=== PATIENT | female | born 1935 | race Caucasian/White ===

== ENCOUNTER 2016-08-04 12:44 | Outpatient (CLI) | payer MEDICARE, OTHER | END 2016-08-04 12:45 | disposition home or self-care (01) | DX: I48.0 Paroxysmal atrial fibrillation (principal) ==

== ENCOUNTER 2016-08-23 | Outpatient (CLI) | payer MEDICARE, OTHER | END 2016-08-23 15:53 | disposition home or self-care (01) | DX: Z53.9 Procedure and treatment not carried out, unspecified reason (principal) ==

== ENCOUNTER 2016-08-23 16:50 | Outpatient (CLI) | payer MEDICARE, OTHER | END 2016-08-23 16:51 | disposition home or self-care (01) | DX: I48.0 Paroxysmal atrial fibrillation (principal) ==

== ENCOUNTER 2016-08-26 11:35 | Outpatient (CLI) | payer MEDICARE, OTHER | END 2016-08-26 11:36 | disposition home or self-care (01) | DX: I10 Essential (primary) hypertension (principal); E78.5 Hyperlipidemia, unspecified; E11.9 Type 2 diabetes mellitus without complications ==

== ENCOUNTER 2016-09-15 13:03 | Outpatient (CLI) | payer MEDICARE, OTHER ==
[2016-09-15 13:39] LABS: CALCIUM 9.7 mg/dL (8.5-10.3); CREATININE 1.5 mg/dL (0.4-1.0); POTASSIUM 4.1 mmol/L (3.5-5.0)
[2016-09-15 13:54] LABS: HEMOGLOBIN A1C 0.65 g/dL
== END 2016-09-15 13:04 | disposition home or self-care (01) ==
LOC: LAB 13:03
PROVIDERS: ATTEND Family Medicine
DX: I50.9 Heart failure, unspecified (principal); E11.9 Type 2 diabetes mellitus without complications; N28.9 Disorder of kidney and ureter, unspecified; I10 Essential (primary) hypertension
CPT/HCPCS: 36415; 80048; 83036

== ENCOUNTER 2016-09-19 12:50 | Outpatient (CLI) | payer MEDICARE, OTHER | END 2016-09-19 12:51 | disposition home or self-care (01) | DX: I48.0 Paroxysmal atrial fibrillation (principal) ==

== ENCOUNTER 2016-10-20 11:23 | Outpatient (CLI) | payer MEDICARE, OTHER | END 2016-10-20 11:24 | disposition home or self-care (01) | DX: I48.0 Paroxysmal atrial fibrillation (principal) ==

== ENCOUNTER 2016-10-22 16:36 | Outpatient (CLI) | payer MEDICARE, OTHER | END 2016-10-22 16:37 | disposition home or self-care (01) | DX: I48.0 Paroxysmal atrial fibrillation (principal) ==

== ENCOUNTER 2016-11-10 12:06 | Outpatient (CLI) | payer MEDICARE, OTHER | END 2016-11-10 12:07 | disposition home or self-care (01) | DX: I48.0 Paroxysmal atrial fibrillation (principal) ==

== ENCOUNTER 2016-12-10 14:37 | Outpatient (CLI) | payer MEDICARE, OTHER | END 2016-12-10 14:38 | disposition home or self-care (01) | DX: I48.0 Paroxysmal atrial fibrillation (principal) ==

== ENCOUNTER 2017-01-05 15:00 | Outpatient (CLI) | payer MEDICARE, OTHER | END 2017-01-05 15:01 | disposition home or self-care (01) | LOC: LAB 15:00 | PROVIDERS: ATTEND Family Medicine | DX: I48.0 Paroxysmal atrial fibrillation (principal) | CPT/HCPCS: 85610 ==

== ENCOUNTER 2017-01-09 15:24 | Outpatient (CLI) | payer MEDICARE, OTHER | END 2017-01-09 15:25 | disposition home or self-care (01) | LOC: LAB 15:24 | PROVIDERS: ATTEND Family Medicine | DX: I48.0 Paroxysmal atrial fibrillation (principal) ==

== ENCOUNTER 2017-01-12 12:21 | Outpatient (CLI) | payer MEDICARE, OTHER ==
[2017-01-12 13:08] LABS: HEMOGLOBIN A1C 0.64 g/dL
[2017-01-12 13:10] LABS: CALCIUM 8.9 mg/dL (8.5-10.3); CREATININE 1.4 mg/dL (0.4-1.0); POTASSIUM 4.1 mmol/L (3.5-5.0)
== END 2017-01-12 12:22 | disposition home or self-care (01) ==
LOC: LAB 12:21
PROVIDERS: ATTEND Family Medicine
DX: E11.9 Type 2 diabetes mellitus without complications (principal); I10 Essential (primary) hypertension
CPT/HCPCS: 36415; 80048; 83036

== ENCOUNTER 2017-02-16 12:07 | Outpatient (CLI) | payer MEDICARE, OTHER | END 2017-02-16 12:08 | disposition home or self-care (01) | LOC: LAB 12:07 | PROVIDERS: ATTEND Family Medicine | DX: I48.0 Paroxysmal atrial fibrillation (principal) | CPT/HCPCS: 85610 ==

== ENCOUNTER 2017-03-18 15:39 | Outpatient (CLI) | payer MEDICARE, OTHER | END 2017-03-18 15:40 | disposition home or self-care (01) | LOC: LAB 15:39 | PROVIDERS: ATTEND Family Medicine | DX: I48.0 Paroxysmal atrial fibrillation (principal) | CPT/HCPCS: 85610 ==

== ENCOUNTER 2017-03-21 13:26 | Outpatient (CLI) | payer MEDICARE | END 2017-03-21 13:27 | disposition home or self-care (01) | LOC: LAB 13:26 | PROVIDERS: ATTEND Family Medicine | DX: I48.0 Paroxysmal atrial fibrillation (principal) | CPT/HCPCS: 85610 ==

== ENCOUNTER 2017-04-14 10:12 | Outpatient (CLI) | payer MEDICARE, OTHER ==
[2017-04-14 10:58] LABS: ALBUMIN/GLOBULIN RATIO 1.5 (1.0-2.2); BILIRUBIN,TOTAL 0.4 mg/dL (0.2-1.0); CALCIUM 9.6 mg/dL (8.5-10.3); CREATININE 1.6 mg/dL (0.4-1.0); POTASSIUM 4.5 mmol/L (3.5-5.0); TOTAL PROTEIN 7.4 g/dL (6.7-8.2)
[2017-04-14 11:17] LABS: HEMOGLOBIN A1C 0.79 g/dL
== END 2017-04-14 10:13 | disposition home or self-care (01) ==
LOC: LAB 10:12
PROVIDERS: ATTEND Family Medicine
DX: E11.9 Type 2 diabetes mellitus without complications (principal); N28.9 Disorder of kidney and ureter, unspecified; I10 Essential (primary) hypertension
CPT/HCPCS: 36415; 80053; 83036

== ENCOUNTER 2017-06-24 09:31 | Outpatient (CLI) | payer MEDICARE, OTHER ==
[2017-06-24 10:10] LABS: CALCIUM 9.2 mg/dL (8.5-10.3); CREATININE 1.5 mg/dL (0.4-1.0); INR 3.7 (0.8-1.2); POTASSIUM 3.9 mmol/L (3.5-5.0); PT - PROTHROMBIN TIME 39.8 secs (9.9-12.6)
[2017-06-24 10:40] LABS: HEMOGLOBIN A1C 0.69 g/dL
== END 2017-06-24 09:32 | disposition home or self-care (01) ==
LOC: LAB 09:31
PROVIDERS: ATTEND Family Medicine
DX: I48.91 Unspecified atrial fibrillation (principal); Z79.01 Long term (current) use of anticoagulants
CPT/HCPCS: 36415; 80048; 83036; 85610

== ENCOUNTER 2017-07-14 14:54 | Outpatient (CLI) | payer MEDICARE, OTHER | END 2017-07-14 14:55 | disposition home or self-care (01) | LOC: LAB 14:54 | PROVIDERS: ATTEND Family Medicine | DX: I48.0 Paroxysmal atrial fibrillation (principal) | CPT/HCPCS: 85610 ==

== ENCOUNTER 2017-09-18 13:28 | Outpatient (CLI) | payer MEDICARE, OTHER ==
--- NOTE | 2017-09-21 10:12 | DEXA Report ---
DEXA SCAN: 09/18/2017 CLINICAL INDICATION: Osteoporosis. TECHNIQUE: Dual energy x-ray absorptiometry (DXA) was performed on a [facility] system. Regions measured are the AP spine, femoral neck, and, if needed, forearm. COMPARISON: None. In accordance with the International Society for Clinical Densitometry (ISCD) guidelines, data from previous exams may be reanalyzed using current recommendations and techniques. This is done to allow a more accurate basis for comparison with the current study. FINDINGS: The data for the lumbar spine is as follows: REGION BMD (g/cm/cm) T-SCORE Z-SCORE L1 1.298 1.4 3.4 L2 1.138 -0.5 1.5 L3 1.087 -0.9 1.1 L4 0.983 -1.8 0.2 L1-L4 1.112 -0.6 1.5 L2-L4 1.058 -1.2 0.8 NOTE: All evaluable vertebrae are used for classification. The data for the hip is as follows: REGION BMD (g/cm/cm) T-SCORE Z-SCORE Neck 0.849 -1.4 0.9 TOTAL 0.852 -1.2 0.9 NOTE: The femoral neck or total proximal femur, whichever is lowest, is used for classification. IMPRESSION THE WHO CLASSIFICATION BASED ON THE INTERNATIONAL REFERENCE STANDARD IS OSTEOPENIA. THE FRACTURE RISK IS INCREASED. RECOMMENDATION: Patients with diagnosis of osteoporosis or osteopenia should have regular bone mineral density assessment. For those eligible for Medicare, routine testing is allowed once every 2 years. Testing frequency can be increased for patients who have rapidly progressing disease or for those who are receiving medical therapy to restore bone mass. COMMENT: World Health Organization (WHO) definitions for osteoporosis and osteopenia: NORMAL BMD: T-score at 1.0 or higher, fracture risk is low. OSTEOPENIA BMD: T-score between 1.0 and -2.5, fracture risk is increased. OSTEOPOROSIS BMD: T-score at 2.5 or lower, fracture risk high. National Osteoporosis Foundation recommends: 1. Obtain adequate dietary calcium (at least 1200 mg per day) and vitamin D (400 -800 international units per day). 2. Participate, as appropriate, in regular weightbearing and muscle- strengthening exercise. 3. Avoid tobacco use and reduce alcohol and caffeine intake. 4. For more detailed information see the website at www.NOF.org. TD: 09/18/2017 15:52 [email or web address]
== END 2017-09-18 13:29 | disposition home or self-care (01) ==
LOC: DI 13:28
PROVIDERS: ATTEND Physician Assistant Medical
DX: M85.89 Other specified disorders of bone density and structure, multiple sites (principal); I48.0 Paroxysmal atrial fibrillation; E11.9 Type 2 diabetes mellitus without complications; I11.0 Hypertensive heart disease with heart failure; I50.9 Heart failure, unspecified; F43.20 Adjustment disorder, unspecified; N28.9 Disorder of kidney and ureter, unspecified; E78.5 Hyperlipidemia, unspecified; Z79.01 Long term (current) use of anticoagulants
CPT/HCPCS: 36415; 77080; 80053; 80061; 83036; 83721; 85610

== ENCOUNTER 2017-09-18 14:02 | Outpatient (CLI) | payer MEDICARE, OTHER ==
[2017-09-18 14:41] LABS: ALBUMIN 4.5 g/dL (3.2-5.5); ALBUMIN/GLOBULIN RATIO 1.4 (1.0-2.2); ALKALINE PHOSPHATASE 55 IU/L (42-121); ALT ALANINE AMINOTRANSFERASE 15 IU/L (10-60); AST ASPARTATE AMINOTRANSFERASE 24 IU/L (10-42); BILIRUBIN,TOTAL 0.7 mg/dL (0.2-1.0); BUN - BLOOD UREA NITROGEN 18 mg/dL (6-20); CALCIUM 9.5 mg/dL (8.5-10.3); CARBON DIOXIDE - CO2 25 mmol/L (21-32); CHLORIDE 98 mmol/L (101-111); CHOL/HDL RATIO 5.5 (<4.4); CHOLESTEROL 180 mg/dL; CREATININE 1.5 mg/dL (0.4-1.0); GFR - MDRD 33 (>89); GLUCOSE 95 mg/dL (70-100); HDL CHOLESTEROL 33 mg/dL; SODIUM 137 mmol/L (135-145); TOTAL PROTEIN 7.7 g/dL (6.7-8.2)
[2017-09-18 14:43] LABS: HB2 TOTAL 14.8 g/dL; HEMOGLOBIN A1C 0.73 g/dL; HEMOGLOBIN A1C % 6.7 % (4.6-6.2)
[2017-09-18 15:10] LABS: LDL CHOLESTEROL,DIRECT 58 mg/dL; LDLD/HDL RATIO 1.8 (<4.4)
== END 2017-09-18 14:03 | disposition home or self-care (01) ==
LOC: LAB 14:02
PROVIDERS: ATTEND Family Medicine
DX: I48.0 Paroxysmal atrial fibrillation (principal); Z79.01 Long term (current) use of anticoagulants; E11.9 Type 2 diabetes mellitus without complications; I11.0 Hypertensive heart disease with heart failure; I50.9 Heart failure, unspecified; F43.20 Adjustment disorder, unspecified; N28.9 Disorder of kidney and ureter, unspecified; E78.5 Hyperlipidemia, unspecified
CPT/HCPCS: 36415; 80053; 80061; 83036; 83721; 85610

== ENCOUNTER 2017-11-05 15:04 | Outpatient (CLI) | payer MEDICARE, OTHER | END 2017-11-05 15:05 | disposition home or self-care (01) | LOC: LAB 15:04 | PROVIDERS: ATTEND Family Medicine | DX: I48.0 Paroxysmal atrial fibrillation (principal) | CPT/HCPCS: 85610 ==

== ENCOUNTER 2017-11-20 11:48 | Outpatient (CLI) | payer MEDICARE, OTHER | END 2017-11-20 11:49 | disposition home or self-care (01) | LOC: LAB 11:48 | PROVIDERS: ATTEND Family Medicine | DX: I48.0 Paroxysmal atrial fibrillation (principal) | CPT/HCPCS: 85610 ==

== ENCOUNTER 2017-12-08 15:31 | Outpatient (CLI) | payer MEDICARE, OTHER | END 2017-12-08 15:32 | disposition home or self-care (01) | LOC: LAB 15:31 | PROVIDERS: ATTEND Family Medicine | DX: I48.0 Paroxysmal atrial fibrillation (principal) | CPT/HCPCS: 85610 ==

== ENCOUNTER 2018-01-20 10:35 | Outpatient (CLI) | payer MEDICARE, OTHER | END 2018-01-20 10:36 | LOC: LAB.WCP 10:35 | PROVIDERS: ATTEND Family Medicine | DX: M67.432 Ganglion, left wrist (principal) | CPT/HCPCS: 87640 ==

== ENCOUNTER 2018-02-01 19:27 | Outpatient (CLI) | payer MEDICARE, OTHER | END 2018-02-01 19:28 | disposition critical access hospital (66) | LOC: EMS 19:27 | PROVIDERS: ATTEND Surgery | DX: R07.9 Chest pain, unspecified (principal) | CPT/HCPCS: A0425; A0427 ==

== ENCOUNTER 2018-02-01 19:41 | Emergency (ER) | payer MEDICARE, OTHER ==
[2018-02-01 19:54] LABS: BASOPHILS % (AUTO) 0.4 %; EOSINOPHILS # (AUTO) 0.2 10^3/uL (0.0-0.7); HGB - HEMOGLOBIN 12.8 g/dL (12.0-16.0); LYMPHOCYTES # (AUTO) 2.3 10^3/uL (1.5-3.5); LYMPHOCYTES % (AUTO) 18.2 %; MEAN CORPUSCULAR HEMOGLOBIN 30.1 pg (27.0-31.0); MEAN CORPUSCULAR HGB CONC 33.2 g/dL (32.0-36.0); MEAN CORPUSCULAR VOLUME 90.4 fL (81.0-99.0); MEAN PLATELET VOLUME 7.8 fL (7.9-10.8); MONOCYTES # (AUTO) 0.9 10^3/uL (0.0-1.0); MONOCYTES % (AUTO) 7.2 %; NEUTROPHILS # (AUTO) 9.1 10^3/uL (1.5-6.6); NEUTROPHILS % (AUTO) 72.2 %; PLT - PLATELET COUNT 280 10^3/uL (130-450); RED BLOOD COUNT 4.26 10^6/uL (4.20-5.40); RED CELL DISTRIBUTION WIDTH 14.5 % (12.0-15.0); WHITE BLOOD COUNT 12.5 x10^3/uL (4.8-10.8)
--- NOTE | 2018-02-01 20:07 | XRAY Report ---
Procedure Date: 02/01/2018 Accession Number: [id number] / [id number] Procedure: XR - Chest 1 View X-Ray CPT Code: 07506 FULL RESULT: EXAM: CHEST RADIOGRAPHY EXAM DATE: 02/01/2018 07:57 PM. CLINICAL HISTORY: Chest pain. COMPARISON: Chest radiograph 08/19/2014. TECHNIQUE: 1 view. FINDINGS: Lungs/Pleura: Increased lung markings. No focal opacities. No effusions. Mediastinum: Stable. Calcified left hilar lymph nodes consistent with prior granulomatous infection. Other: Left-sided pacemaker with a right atrial and right ventricular lead. IMPRESSION: No acute radiographic cardiopulmonary process. Suspect chronic airways disease RADIA
[2018-02-01 20:08] LABS: ALBUMIN 3.9 g/dL (3.2-5.5); ALBUMIN/GLOBULIN RATIO 1.1 (1.0-2.2); BILIRUBIN,TOTAL 0.4 mg/dL (0.2-1.0); CALCIUM 9.3 mg/dL (8.5-10.3); CREATININE 1.8 mg/dL (0.4-1.0); TOTAL PROTEIN 7.4 g/dL (6.7-8.2)
[2018-02-01] MEDS ORDERED: SODIUM CHLORIDE 0.9% 1,000 ML IV ONE (20:23)
--- NOTE | 2018-02-01 21:05 | ED Physician Documentation ---
PD HPI CHEST PAIN - Stated complaint Stated Complaint: CP - Chief complaint Chief Complaint: Cardiac - History obtained from History obtained from: Patient - History of Present Illness Timing - onset: Today Timing - onset during: Rest Timing - details: Abrupt onset, Now resolved Quality: Pressure Location: Substernal, Right chest Worsened by: No: Exertion, Inspiration, Palpation Associated symptoms: No: Shortness of air, Diaphoresis, Nausea Similar symptoms before: No diagnosis Recently seen: Not recently seen - Additional information Additional information: Patient is an 82 year old female presenting to the emergency department for chest pain. patient states that she was watching tv when she developed some chest pain. patient states that the pain lasted almost an hour. Upon arrival to the emergency department patient stated that her pain had resolved. patient denies any exertional component. Patient stated that she just wants to make sure it was not a heart attach and she wants to go home. Review of Systems Ten Systems: 10 systems reviewed and negative Constitutional: denies: Fever, Chills Cardiac: reports: Chest pain / pressure. 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 : Renal insuffiency HEENT: Chronic hearing loss Psych: Anxiety, Other Musculoskeletal: Osteoarthritis, Fatigue, Chronic back pain - Past Surgical History Past Surgical History: Yes General: Appendectomy Ortho: Other /COMPUTER TAPE LIBRARIAN: Hysterectomy Cardiovascular: Pacemaker HEENT: Tonsil/Adenoidectomy - Present Medications Home Medications: Ambulatory Orders Medication Instructions Recorded Confirmed Alendronate Sodium [Fosamax] 1 tab PO ONCE 12/28/13 02/01/18 Atorvastatin Calcium [Lipitor] 40 mg PO DAILY 12/28/13 02/01/18 Digoxin 125 mcg PO DAILY 12/28/13 02/01/18 Diltiazem HCl [Cardizem Cd] 180 mg PO DAILY 12/28/13 02/01/18 Fluticasone [Flonase] 1 spray OZZIE BID 12/28/13 02/01/18 Furosemide [Lasix] 20 mg PO BID 12/28/13 02/01/18 HYDROcod/ACETAM 5/325 [Vicodin 1 tab PO Q4HR PRN 12/28/13 02/01/18 5/325] Potassium Chloride Oral Soln 5 ml PO DAILY 12/28/13 02/01/18 Warfarin Sodium [Coumadin] 2 mg PO DAILY 12/28/13 02/01/18 Zolpidem Tartrate [Ambien] 2.5 mg PO DAILY 12/28/13 02/01/18 Sertraline HCl [Zoloft] 100 mg PO DAILY 03/11/14 02/01/18 - Allergies Allergies/Adverse Reactions: Allergies Allergy/AdvReac Type Severity Reaction Status Date / Time No Known Drug Allergies Allergy Verified 02/01/18 19:56 - Social History Does the pt smoke?: No Smoking Status: Never smoker Does the pt drink ETOH?: Yes Does the pt have substance abuse?: No - Immunizations Immunizations are current?: Yes - POLST Patient has POLST: No PD ED PE NORMAL - Vitals Vital signs reviewed: Yes - General General: Alert and oriented X 3, No acute distress - HEENT HEENT: Atraumatic - Cardiac Cardiac: RRR - Respiratory Respiratory: No respiratory distress - Abdomen Abdomen: Soft - Derm Derm: Normal color, Warm and dry - Extremities Extremities: No deformity, No calf tenderness / cord - Neuro Neuro: Alert and oriented 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, 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, No motor deficit, Normal speech Results - Vitals Vitals: Vital Signs - 24 hr 02/01/18 02/01/18 19:42 21:28 Temperature 36.8 C Heart Rate 62 68 Respiratory 16 16 Rate Blood Pressure 157/68 H 146/69 H O2 Saturation 93 96 Oxygen O2 Source Room air - EKG (time done) 1944 Rate: Rate (enter#) (66) Rhythm: Paced - Labs Labs: Laboratory Tests 02/01/18 02/01/18 02/01/18 19:51 19:51 19:51 WBC 12.5 H RBC 4.26 Hgb 12.8 Hct 38.5 MCV 90.4 MCH 30.1 MCHC 33.2 RDW 14.5 Plt Count 280 MPV 7.8 L Neut # (Auto) 9.1 H Lymph # (Auto) 2.3 [place] # (Auto) 0.9 Eos # (Auto) 0.2 Baso # (Auto) 0.0 Absolute Nucleated RBC 0.00 Nucleated RBC % 0.0 Sodium 136 Potassium 4.2 Chloride 101 Carbon Dioxide 26 Anion Gap 9.0 BUN 26 H Creatinine 1.8 H Estimated GFR (MDRD) 27 L Glucose 148 H Calcium 9.3 Total Bilirubin 0.4 AST 23 ALT 16 Alkaline Phosphatase 47 Troponin I < 0.04 Total Protein 7.4 Albumin 3.9 Globulin 3.5 Albumin/Globulin Ratio 1.1 Lipase 47 - Rads (name of study) chest x-ray Radiology: Final report received (no acute pathology) PD MEDICAL DECISION MAKING - ED course Complexity details: reviewed old records, reviewed results, re-evaluated patient , considered differential, d/w patient ED course: Patient was seen and examined at bedside. Patient was well appearing and in no acute distress. ekg and chest x-ray was within normal limits. Patient had a slight bump in her creatinine and was started on a fluid bolus. Patient stated that she wanted to get back home to her dog. Patient was made aware that she was high risk for cardiovascular disease. patient stated that she would follow up with her doctor tomorrow. Patient required no further work up at this time and was stable for discharge with close, outpatient follow up. - Sepsis Event Vital Signs: Vital Signs - 24 hr 02/01/18 02/01/18 19:42 21:28 Temperature 36.8 C Heart Rate 62 68 Respiratory 16 16 Rate Blood Pressure 157/68 H 146/69 H O2 Saturation 93 96 Oxygen O2 Source Room air Departure - Departure Disposition: 01 Home, Self Care Clinical Impression: Chest pain Condition: Good Instructions: ED Chest Pain Atypical Unkn Cause Follow-Up: Brad Holliday MD [Primary Care Provider] - Tomorrow Comments: Your diagnostics today were within normal limits aside that your were slightly dehydrated. Even thought there were no cardiac abnormalities it is only a snapshot in time. It is important that you follow up with your doctor tomorrow to schedule a stress test and echo cardiogram. You should return to the emergency department for any new, worsening or uncontrollable symptoms.
[2018-02-01 21:28] VITALS: BP 146/69
== END 2018-02-01 21:27 | disposition home or self-care (01) ==
LOC: EDUNIT# → ED 19:41
DX: R07.9 Chest pain, unspecified (principal); I45.10 Unspecified right bundle-branch block; I10 Essential (primary) hypertension; E78.00 Pure hypercholesterolemia, unspecified; E11.9 Type 2 diabetes mellitus without complications; I48.91 Unspecified atrial fibrillation; Z79.01 Long term (current) use of anticoagulants; Z95.0 Presence of cardiac pacemaker
CPT/HCPCS: 36415; 71045; 80053; 83690; 84484; 85025; 93005; 96360; 99283; 99284

== ENCOUNTER 2018-03-02 15:41 | Outpatient (CLI) | payer MEDICARE, OTHER | END 2018-03-02 15:42 | disposition home or self-care (01) | LOC: LAB 15:41 | PROVIDERS: ATTEND Family Medicine | DX: I48.0 Paroxysmal atrial fibrillation (principal) | CPT/HCPCS: 85610 ==

== ENCOUNTER 2018-03-27 12:34 | Outpatient (CLI) | payer MEDICARE, OTHER ==
[2018-03-27 13:01] LABS: CALCIUM 9.5 mg/dL (8.5-10.3); CREATININE 1.8 mg/dL (0.4-1.0)
[2018-03-27 13:23] LABS: HEMOGLOBIN A1C 0.72 g/dL; HEMOGLOBIN A1C % 6.9 % (4.6-6.2)
== END 2018-03-27 12:35 | disposition home or self-care (01) ==
LOC: LAB 12:34
PROVIDERS: ATTEND Family Medicine
DX: I48.0 Paroxysmal atrial fibrillation (principal); E11.22 Type 2 diabetes mellitus with diabetic chronic kidney disease; I13.0 Hypertensive heart and chronic kidney disease with heart failure and stage 1 through stage 4 chronic kidney disease, or unspecified chronic kidney disease; N18.2 Chronic kidney disease, stage 2 (mild)
CPT/HCPCS: 36415; 80048; 83036

== ENCOUNTER 2018-05-07 14:50 | Outpatient (CLI) | payer MEDICARE, OTHER ==
[2018-05-07 15:51] LABS: PT - PROTHROMBIN TIME 52.9 secs (9.9-12.6)
== END 2018-05-07 14:51 | disposition home or self-care (01) ==
LOC: LAB 14:50
PROVIDERS: ATTEND Family Medicine
DX: Z79.01 Long term (current) use of anticoagulants (principal)
CPT/HCPCS: 85610

== ENCOUNTER 2018-05-13 15:13 | Outpatient (CLI) | payer MEDICARE, OTHER | END 2018-05-13 15:14 | disposition home or self-care (01) | LOC: LAB 15:13 | PROVIDERS: ATTEND Family Medicine | DX: Z79.01 Long term (current) use of anticoagulants (principal) | CPT/HCPCS: 85610 ==

== ENCOUNTER 2018-05-21 12:15 | Outpatient (CLI) | payer MEDICARE, OTHER | END 2018-05-21 12:16 | disposition home or self-care (01) | LOC: LAB 12:15 | PROVIDERS: ATTEND Family Medicine | DX: Z79.01 Long term (current) use of anticoagulants (principal) | CPT/HCPCS: 85610 ==

== ENCOUNTER 2018-05-28 11:11 | Outpatient (CLI) | payer MEDICARE, OTHER | END 2018-05-28 11:12 | disposition home or self-care (01) | LOC: LAB 11:11 | PROVIDERS: ATTEND Family Medicine | DX: Z79.01 Long term (current) use of anticoagulants (principal) | CPT/HCPCS: 85610 ==

== ENCOUNTER 2018-06-01 15:18 | Emergency (ER) | payer MEDICARE, OTHER | END 2018-06-01 15:27 | disposition left against medical advice (07) | LOC: ED 15:18 | DX: Z53.21 Procedure and treatment not carried out due to patient leaving prior to being seen by health care provider (principal) ==

== ENCOUNTER 2018-06-18 13:52 | Outpatient (CLI) | payer MEDICARE, OTHER | END 2018-06-18 13:53 | disposition home or self-care (01) | LOC: LAB 13:52 | PROVIDERS: ATTEND Family Medicine | DX: Z79.01 Long term (current) use of anticoagulants (principal) | CPT/HCPCS: 85610 ==

== ENCOUNTER 2018-06-21 08:03 | Outpatient (CLI) | payer MEDICARE, OTHER | END 2018-06-21 08:04 | disposition home or self-care (01) | LOC: LAB 08:03 | PROVIDERS: ATTEND Family Medicine | DX: Z53.9 Procedure and treatment not carried out, unspecified reason (principal) | CPT/HCPCS: 85610 ==

== ENCOUNTER 2018-07-16 08:00 | Outpatient (CLI) | payer MEDICARE, OTHER ==
[2018-07-16 14:04] LABS: HB2 TOTAL 13.2 g/dL; HEMOGLOBIN A1C 0.66 g/dL; HEMOGLOBIN A1C % 6.7 % (4.6-6.2)
[2018-07-16 14:16] LABS: ALBUMIN/GLOBULIN RATIO 1.4 (1.0-2.2); ALKALINE PHOSPHATASE 57 IU/L (42-121); ALT ALANINE AMINOTRANSFERASE 18 IU/L (10-60); AST ASPARTATE AMINOTRANSFERASE 20 IU/L (10-42); BILIRUBIN,TOTAL 0.6 mg/dL (0.2-1.0); BUN - BLOOD UREA NITROGEN 21 mg/dL (6-20); CALCIUM 9.4 mg/dL (8.5-10.3); CARBON DIOXIDE - CO2 26 mmol/L (21-32); CHLORIDE 103 mmol/L (101-111); CHOL/HDL RATIO 4.7 (<4.4); CHOLESTEROL 137 mg/dL; CREATININE 1.8 mg/dL (0.4-1.0); GFR - MDRD 27 (>89); GLUCOSE 138 mg/dL (70-100); HDL CHOLESTEROL 29 mg/dL; LDL CHOLESTEROL,CALCULATED 45 mg/dL; LDL/HDL RATIO 1.6 (<4.4); SODIUM 140 mmol/L (135-145); TOTAL PROTEIN 6.9 g/dL (6.7-8.2); VLDL CHOLESTEROL 63 mg/dL
== END 2018-07-16 23:59 | disposition home or self-care (01) ==
LOC: LAB.WCP 08:00
PROVIDERS: ATTEND Family Medicine
DX: E78.5 Hyperlipidemia, unspecified (principal); Z79.899 Other long term (current) drug therapy; E11.9 Type 2 diabetes mellitus without complications; F32.9 Major depressive disorder, single episode, unspecified
CPT/HCPCS: 36415; 80053; 80061; 80162; 82043; 83036; 83721; 84443

== ENCOUNTER 2018-09-21 21:06 | Outpatient (CLI) | payer MEDICARE, OTHER ==
--- NOTE | 2018-09-21 22:23 | Ultrasound Report ---
Reason: LEG PAIN,LEFT Procedure Date: 09/21/2018 Accession Number: [id number] / [id number] Procedure: US - Duplex Ext Veins Left CPT Code: FULL RESULT: EXAM: LEFT LOWER EXTREMITY VENOUS ULTRASOUND EXAM DATE: 09/21/2018 09:48 PM. CLINICAL HISTORY: Left leg pain, bruising, and swelling. COMPARISON: None. TECHNIQUE: Real-time sonographic vascular imaging was performed by the fretted instrument inspector through the lower extremity utilizing both color-flow and Doppler spectral analysis. Multiple financial services sales representative static images were saved for review. FINDINGS: Common Femoral Vein (CFV): Normal. CFV-GSV Junction: Normal. Profunda Femoral Vein (PFV): Normal. Femoral Vein (FV) Prox: Normal. Femoral Vein (FV) Mid: Normal. Femoral Vein (FV) Dist: Normal. Popliteal Vein: Normal. Posterior Tibial Veins: Limited visualization of the. Peroneal Veins: Nonvisualized. Contralateral Side CFV: Normal. Other: Large complex avascular collection deep to the subcutaneous fat extends from proximal calf to the ankle, 11.9 x 1.9 x 4.2 cm. IMPRESSION: 1. No evidence for deep venous thrombosis. 2. Deep complex collection, from proximal calf to ankle, likely hematoma. RADIA The call report notification system was initiated by Dr. Baldemar Finley at 10:21 PM on 09/21/2018. ADDENDUM: 09/21/18 22:26 The above call report findings were discussed with Brandy Espino by Dr. Baldemar Finley at 10:26 PM on 09/21/2018.
== END 2018-09-21 21:07 | disposition home or self-care (01) ==
LOC: DI 21:06
PROVIDERS: ATTEND Family Medicine
DX: M79.605 Pain in left leg (principal)

== ENCOUNTER 2018-10-04 09:50 | Outpatient (CLI) | payer MEDICARE, OTHER ==
--- NOTE | 2018-10-04 11:02 | XRAY Report ---
Reason: OSTEOARTHIRITIS, KNEE Procedure Date: 10/04/2018 Accession Number: [id number] / [id number] Procedure: WCP - Knee 3 View LT CPT Code: FULL RESULT: EXAM: LEFT KNEE RADIOGRAPHY EXAM DATE: 10/04/2018 10:08 AM. CLINICAL HISTORY: Osteoarthritis, knee. COMPARISON: Left knee 2 views 06/12/2016. TECHNIQUE: 3 views. FINDINGS: Bones: Seen on the AP view only and projecting over the medial femoroacetabular joint space is a vertically oriented, thin linear calcific density, 4 mm length. Otherwise, no fractures or bone lesions and no donor site seen. Joints: Normal. No effusion. No subluxations. Soft Tissues: Normal. No soft tissue swelling. IMPRESSION: Question possibly intra-articular thin linear calcific density in the medial femorotibial compartment. Possibly a posttraumatic finding. No donor site is identified. RADIA
== END 2018-10-04 09:51 | disposition home or self-care (01) ==
LOC: DI.WCP 09:50
PROVIDERS: ATTEND Family Medicine
DX: M17.12 Unilateral primary osteoarthritis, left knee (principal); R93.7 Abnormal findings on diagnostic imaging of other parts of musculoskeletal system

== ENCOUNTER 2019-03-25 08:00 | Outpatient (CLI) | payer MEDICARE, OTHER ==
[2019-03-25 12:51] LABS: BASOPHILS % (AUTO) 0.5 %; EOSINOPHILS # (AUTO) 0.3 10^3/uL (0.0-0.7); EOSINOPHILS % (AUTO) 4.1 %; HGB - HEMOGLOBIN 12.9 g/dL (12.0-16.0); LYMPHOCYTES # (AUTO) 2.1 10^3/uL (1.5-3.5); LYMPHOCYTES % (AUTO) 26.9 %; MEAN CORPUSCULAR HEMOGLOBIN 32.3 pg (27.0-31.0); MEAN CORPUSCULAR HGB CONC 33.6 g/dL (32.0-36.0); MEAN PLATELET VOLUME 10.7 fL (7.9-10.8); MONOCYTES # (AUTO) 0.7 10^3/uL (0.0-1.0); MONOCYTES % (AUTO) 9.5 %; NEUTROPHILS # (AUTO) 4.5 10^3/uL (1.5-6.6); NEUTROPHILS % (AUTO) 58.6 %; PLT - PLATELET COUNT 235 10^3/uL (130-450); RED CELL DISTRIBUTION WIDTH 12.6 % (12.0-15.0); WHITE BLOOD COUNT 7.6 x10^3/uL (4.8-10.8)
[2019-03-25 13:31] LABS: ALBUMIN 4.1 g/dL (3.2-5.5); ALBUMIN/GLOBULIN RATIO 1.4 (1.0-2.2); ALKALINE PHOSPHATASE 53 IU/L (42-121); ALT ALANINE AMINOTRANSFERASE 17 IU/L (10-60); AST ASPARTATE AMINOTRANSFERASE 20 IU/L (10-42); BILIRUBIN,TOTAL 0.5 mg/dL (0.2-1.0); BUN - BLOOD UREA NITROGEN 24 mg/dL (6-20); CARBON DIOXIDE - CO2 27 mmol/L (21-32); CHLORIDE 104 mmol/L (101-111); CHOL/HDL RATIO 6.1 (<4.4); CHOLESTEROL 219 mg/dL; CREATININE 1.8 mg/dL (0.4-1.0); GFR - MDRD 27 (>89); GLUCOSE 190 mg/dL (70-100); HDL CHOLESTEROL 36 mg/dL; SODIUM 140 mmol/L (135-145)
[2019-03-25 13:54] LABS: LDL CHOLESTEROL,DIRECT 91 mg/dL; LDLD/HDL RATIO 2.5 (<4.4)
[2019-03-25 13:55] LABS: HB2 TOTAL 14.1 g/dL; HEMOGLOBIN A1C 0.89 g/dL; HEMOGLOBIN A1C % 7.9 % (4.6-6.2)
== END 2019-03-25 23:59 | disposition home or self-care (01) ==
LOC: LAB.WCP 08:00
PROVIDERS: ATTEND Family Medicine
DX: I10 Essential (primary) hypertension (principal); E11.9 Type 2 diabetes mellitus without complications; E78.5 Hyperlipidemia, unspecified
CPT/HCPCS: 36415; 80053; 80061; 83036; 83721; 85025

== ENCOUNTER 2019-04-25 08:00 | Outpatient (CLI) | payer MEDICARE, OTHER ==
[2019-04-25 13:45] LABS: CALCIUM 9.4 mg/dL (8.5-10.3); CREATININE 1.7 mg/dL (0.4-1.0)
[2019-04-25 14:05] LABS: HGB - HEMOGLOBIN 13.6 g/dL (12.0-16.0); MEAN CORPUSCULAR HEMOGLOBIN 32.1 pg (27.0-31.0); MEAN CORPUSCULAR HGB CONC 33.3 g/dL (32.0-36.0); MEAN CORPUSCULAR VOLUME 96.5 fL (81.0-99.0); MEAN PLATELET VOLUME 10.6 fL (7.9-10.8); RED BLOOD COUNT 4.24 10^6/uL (4.20-5.40); RED CELL DISTRIBUTION WIDTH 12.5 % (12.0-15.0); TOTAL PROTEIN,URINE TIMED < 6 mg/dL; WHITE BLOOD COUNT 8.4 x10^3/uL (4.8-10.8)
== END 2019-04-25 23:59 | disposition home or self-care (01) ==
LOC: LAB.WCP 08:00
PROVIDERS: ATTEND Internal Medicine Nephrology
DX: N05.9 Unspecified nephritic syndrome with unspecified morphologic changes (principal); D70.9 Neutropenia, unspecified; D63.1 Anemia in chronic kidney disease; R80.9 Proteinuria, unspecified
CPT/HCPCS: 36415; 80048; 82570; 84156; 85027

== ENCOUNTER 2019-06-28 08:00 | Outpatient (CLI) | payer MEDICARE, OTHER ==
[2019-06-28 18:53] LABS: CALCIUM 9.1 mg/dL (8.5-10.3); CREATININE 1.8 mg/dL (0.4-1.0)
== END 2019-06-28 23:59 | disposition home or self-care (01) ==
LOC: LAB.WCP 08:00
PROVIDERS: ATTEND Internal Medicine Nephrology
DX: N05.9 Unspecified nephritic syndrome with unspecified morphologic changes (principal); I50.32 Chronic diastolic (congestive) heart failure
CPT/HCPCS: 36415; 80048; 83880

== ENCOUNTER 2019-08-12 08:00 | Outpatient (CLI) | payer MEDICARE, OTHER ==
[2019-08-12 19:26] LABS: HB2 TOTAL 14.3 g/dL; HEMOGLOBIN A1C 1.23 g/dL
[2019-08-12 19:30] LABS: CALCIUM 9.1 mg/dL (8.5-10.3); CREATININE 1.5 mg/dL (0.4-1.0)
== END 2019-08-12 23:59 | disposition home or self-care (01) ==
LOC: LAB.WCP 08:00
PROVIDERS: ATTEND Physician Assistant Medical
DX: E11.9 Type 2 diabetes mellitus without complications (principal)
CPT/HCPCS: 36415; 80048; 83036

== ENCOUNTER 2020-02-23 08:30 | Outpatient (CLI) | payer MEDICARE, OTHER ==
[2020-02-23 12:07] LABS: BASOPHILS % (AUTO) 0.5 %; EOSINOPHILS # (AUTO) 0.4 10^3/uL (0.0-0.7); HGB - HEMOGLOBIN 12.7 g/dL (12.0-16.0); LYMPHOCYTES # (AUTO) 2.5 10^3/uL (1.5-3.5); LYMPHOCYTES % (AUTO) 33.5 %; MEAN CORPUSCULAR HEMOGLOBIN 30.7 pg (27.0-31.0); MEAN CORPUSCULAR HGB CONC 31.4 g/dL (32.0-36.0); MEAN CORPUSCULAR VOLUME 97.6 fL (81.0-99.0); MEAN PLATELET VOLUME 10.7 fL (7.9-10.8); MONOCYTES # (AUTO) 0.7 10^3/uL (0.0-1.0); MONOCYTES % (AUTO) 9.6 %; NEUTROPHILS # (AUTO) 3.8 10^3/uL (1.5-6.6); PLT - PLATELET COUNT 283 10^3/uL (130-450); RED BLOOD COUNT 4.14 10^6/uL (4.20-5.40); RED CELL DISTRIBUTION WIDTH 12.6 % (12.0-15.0); WHITE BLOOD COUNT 7.4 x10^3/uL (4.8-10.8)
[2020-02-23 13:02] LABS: ALBUMIN 4.1 g/dL (3.2-5.5); ALBUMIN/GLOBULIN RATIO 1.4 (1.0-2.2); ALKALINE PHOSPHATASE 56 IU/L (42-121); ALT ALANINE AMINOTRANSFERASE 14 IU/L (10-60); AST ASPARTATE AMINOTRANSFERASE 17 IU/L (10-42); BILIRUBIN,TOTAL 0.7 mg/dL (0.2-1.0); BUN - BLOOD UREA NITROGEN 24 mg/dL (6-20); CARBON DIOXIDE - CO2 25 mmol/L (21-32); CHLORIDE 104 mmol/L (101-111); CHOL/HDL RATIO 4.2 (<4.4); CHOLESTEROL 187 mg/dL; CREATININE 1.6 mg/dL (0.4-1.0); GLUCOSE 157 mg/dL (70-100); HDL CHOLESTEROL 45 mg/dL; LDL CHOLESTEROL,CALCULATED 117 mg/dL; LDL/HDL RATIO 2.6 (<4.4); SODIUM 136 mmol/L (135-145); TOTAL PROTEIN 7.1 g/dL (6.7-8.2); VLDL CHOLESTEROL 25 mg/dL
[2020-02-23 13:18] LABS: CREATININE,URINE 122.7 mg/dL; MICROALBUM/CREATININE RATIO,UR 28.5 ug/mg (<30.0); MICROALBUMIN,URINE 3.5 mg/dL (0-300.0)
== END 2020-02-23 23:59 | disposition home or self-care (01) ==
LOC: LAB.WCP 08:30
PROVIDERS: ATTEND Physician Assistant Medical
DX: E11.9 Type 2 diabetes mellitus without complications (principal); M81.0 Age-related osteoporosis without current pathological fracture; E78.5 Hyperlipidemia, unspecified; I48.91 Unspecified atrial fibrillation
CPT/HCPCS: 36415; 80053; 80061; 81599; 82043; 82570; 83036; 83721; 84443; 85025

== ENCOUNTER 2020-04-23 17:05 | Outpatient (CLI) | payer MEDICARE, OTHER | END 2020-04-23 17:06 | disposition critical access hospital (66) | LOC: EMS 17:05 | PROVIDERS: ATTEND Surgery | DX: R07.89 Other chest pain (principal); M25.511 Pain in right shoulder | CPT/HCPCS: A0425; A0427 ==

== ENCOUNTER 2020-04-23 17:23 | Emergency (ER) | payer MEDICARE, OTHER ==
[2020-04-23] MEDS ORDERED: MORPHINE 2 MG/ML CARPUJECT IVP STA ×2 (17:40→19:04)
--- NOTE | 2020-04-23 17:41 | ED Physician Documentation ---
PD HPI CHEST PAIN - Stated complaint Stated Complaint: CHEST/BACK PAIN - Chief complaint Chief Complaint: Back Pain - History obtained from History obtained from: Patient - History of Present Illness Quality: Aching, Dull Location: Right shoulder/arm Radiation: Other (None) Improved by: Nothing Worsened by: Movement, Palpation, Other (Laughing, certain positions) Associated symptoms: No: Shortness of air, Diaphoresis, Nausea, Vomiting, Feeling faint / dizzy, General Weakness, Palpitations, Cough - Additional information Additional information: 84 yo F w/ pmh of atrial fibrillation presented with pain in the right shoulder and scapula. This is chronic pain but it waxes and wanes. Today it was worse than normal and involved the right chest wall and was not relieved with tylenol given at her assisted living facility. The pain is the same pain she typically has and pt is insistent that it is worse due to the smoke and weather recently. No falls or injury. Has long-standing history of right shoulder pain and has tried various medications, steroid injections, PT, heating pad, among other treatments. She stopped doing her shoulder PT exercises and has stopped using voltaren gel and lido patches. Today pain was intolerable so she presented here. Denies fever, chills, cough or URI sx, dyspnea, abd pain, n/v/d, diaphoresis, weakness. No new trauma to the area, no lifting. Pain worse w/ laughing or certain position changes or if she reaches overhead with the right arm. Better at rest. Pt reports she has cardiology appt in 2 days and there is plan for a stress test apparently. Has been seen by her PCP for this right shoulder pain and has had numerous workups and referrals in the past but reports nothing works long-term. Review of Systems Constitutional: reports: Reviewed and negative Cardiac: reports: Reviewed and negative. denies: Chest pain / pressure, Palpitations, Pedal edema, Calf pain Respiratory: reports: Reviewed and negative. denies: Dyspnea, Cough, Hemoptysis, Wheezing GI: reports: Reviewed and negative Skin: reports: Reviewed and negative Musculoskeletal: reports: Back pain, Extremity pain, Joint pain. 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 : Renal insuffiency HEENT: Chronic hearing loss Psych: Anxiety, Other Musculoskeletal: Osteoarthritis, Fatigue, Chronic back pain - Past Surgical History Past Surgical History: Yes General: Appendectomy Ortho: Other /PRINTING MACHINE OPERATOR: Hysterectomy Cardiovascular: Pacemaker HEENT: Tonsil/Adenoidectomy - Present Medications Home Medications: Ambulatory Orders Medication Instructions Recorded Confirmed Alendronate Sodium [Fosamax] 1 tab PO ONCE 12/28/13 02/01/18 Atorvastatin Calcium [Lipitor] 40 mg PO DAILY 12/28/13 02/01/18 Digoxin 125 mcg PO DAILY 12/28/13 02/01/18 Diltiazem HCl [Cardizem Cd] 180 mg PO DAILY 12/28/13 02/01/18 Fluticasone [Flonase] 1 spray OZZIE BID 12/28/13 02/01/18 Furosemide [Lasix] 20 mg PO BID 12/28/13 02/01/18 HYDROcod/ACETAM 5/325 [Vicodin 1 tab PO Q4HR PRN 12/28/13 02/01/18 5/325] Potassium Chloride Oral Soln 5 ml PO DAILY 12/28/13 02/01/18 Warfarin Sodium [Coumadin] 2 mg PO DAILY 12/28/13 02/01/18 Zolpidem Tartrate [Ambien] 2.5 mg PO DAILY 12/28/13 02/01/18 Sertraline HCl [Zoloft] 100 mg PO DAILY 03/11/14 02/01/18 HYDROcod/ACETAM 5/325 [[place] 5/325] 1 each PO Q12H PRN 5 Days #10 04/23/20 tablet Lidocaine Patch 5% [Lidoderm Patch] 1 each TOP DAILY 30 Days #30 patch 04/23/20 - Allergies Allergies/Adverse Reactions: Allergies Allergy/AdvReac Type Severity Reaction Status Date / Time No Known Drug Allergies Allergy Verified 02/01/18 19:56 - Social History Does the pt smoke?: No Smoking Status: Never smoker Does the pt drink ETOH?: Yes Does the pt have substance abuse?: No - Immunizations Immunizations are current?: Yes - POLST Patient has POLST: No PD ED PE NORMAL - Vitals Vital signs reviewed: Yes - General General: Alert and oriented X 3, No acute distress, Well developed/nourished - HEENT HEENT: Atraumatic, Moist mucous membranes - Cardiac Cardiac: No murmur, No gallop, No rub, Other (irregularly irregular) - Respiratory Respiratory: No respiratory distress, Clear bilaterally - Abdomen Abdomen: Normal bowel sounds, Soft, Non tender, Non distended - Back Back: No CVA TTP, No spinal TTP - Derm Derm: Normal color, Warm and dry, No rash - Extremities Extremities: No deformity, No edema, Other (right scapular and right shoulder mild ttp, no redness/swelling/deformity/contusion. Pain with reaching overhead or laughing. Full passive ROM right shoulder. ) - Neuro Neuro: Alert and oriented X 3 Eye Opening: Spontaneous Motor: Obeys Commands Verbal: Oriented GCS Score: 15 - Psych Psych: Normal mood, Normal affect Results - Vitals Vitals: Vital Signs - 24 hr 04/23/20 04/23/20 04/23/20 17:27 17:42 19:13 Temperature 96.2 C H Heart Rate 109 H 97 103 H Respiratory 14 16 13 Rate Blood Pressure 143/81 H 130/72 117/74 O2 Saturation 98 98 98 04/23/20 04/23/20 19:41 19:46 Temperature 36.8 C Heart Rate 103 H 100 Respiratory 14 16 Rate Blood Pressure 128/84 H 128/84 H O2 Saturation 97 97 Oxygen O2 Source Room air - Labs Labs: Laboratory Tests 04/23/20 04/23/20 04/23/20 17:40 17:40 17:40 WBC 13.5 H RBC 4.51 Hgb 14.3 Hct 42.0 MCV 93.1 MCH 31.7 H MCHC 34.0 RDW 12.8 Plt Count 299 MPV 9.9 Neut # (Auto) 10.6 H Lymph # (Auto) 1.7 [place] # (Auto) 0.9 Eos # (Auto) 0.2 Baso # (Auto) 0.1 Absolute Nucleated RBC 0.00 Nucleated RBC % 0.0 PT 18.4 H INR 1.7 H Sodium 141 Potassium 4.4 Chloride 102 Carbon Dioxide 29 Anion Gap 10.0 BUN 22 H Creatinine 1.7 H Estimated GFR (MDRD) 29 L Glucose 167 H Calcium 9.9 Total Bilirubin 1.2 H AST 49 H ALT 28 Alkaline Phosphatase 61 Troponin I High Sens Total Protein 7.7 Albumin 4.4 Globulin 3.3 Albumin/Globulin Ratio 1.3 Lipase 47 04/23/20 17:40 WBC RBC Hgb Hct MCV MCH MCHC RDW Plt Count MPV Neut # (Auto) Lymph # (Auto) [place] # (Auto) Eos # (Auto) Baso # (Auto) Absolute Nucleated RBC Nucleated RBC % PT INR Sodium Potassium Chloride Carbon Dioxide Anion Gap BUN Creatinine Estimated GFR (MDRD) Glucose Calcium Total Bilirubin AST ALT Alkaline Phosphatase Troponin I High Sens 7.1 Total Protein Albumin Globulin Albumin/Globulin Ratio Lipase PD MEDICAL DECISION MAKING - ED course Complexity details: reviewed old records, reviewed results, re-evaluated patient, considered differential, d/w patient ED course: 84 yo F presented w/ right shoulder and scapular pain. This is chronic pain for patient though worse than her baseline. Pain nearly resolved w/ 2mg of morphine though reproducible with certain position changes. Her EKG showed atrial fibrillation which is her baseline. Her chest xray was negative. Her troponin was normal. I suspect an exacerbation of her chronic right shoulder pain and becerra ve low suspicion for ACS. There is no pneumonia on the chest xray and she is not hypoxic nor does she have pleuritic cp to suggest PE. Her pain resolved w/ morphine. Will discharge home w/ prn vicodin BID and lido patches. Pt to continue follow up with PCP for this chronic problem, advised to resume PT exercises she was given, try heating pad. If new or worsening symptoms, return to the ER. Departure - Departure Disposition: 01 Home, Self Care Clinical Impression: Back pain Condition: Good Instructions: ED Pain Control Ch Prescriptions: Lidocaine Patch 5% [Lidoderm Patch] 1 each TOP DAILY 30 Days #30 patch HYDROcod/ACETAM 5/325 [[place] 5/325] 1 each PO Q12H PRN 5 Days #10 tablet PRN Reason: Pain Comments: You presented with chest and back pain. This was likely an exacerbation of your chronic right shoulder/scapula pain. Your EKG showed atrial fibrillation and your heart labs were reassuring. Your chest xray was normal. Your pain was reproducible and improved with morphine. I will discharge you home with Vicodin to take twice daily if needed and I recommend you try the lidocaine patch or voltaren gel that you have at home. A heating pad may be helpful. It may be helpful to resume the shoulder exercises you have done in the past. Please continue follow up with your primary doctor for this pain. Please also keep your appointment with your heart doctor in 2 days. Return to the ER at anytime if you have new or worsening symptoms. Discharge Date/Time: 04/23/20 20:05
[2020-04-23 17:46] LABS: BASOPHILS # (AUTO) 0.1 10^3/uL (0.0-0.1); BASOPHILS % (AUTO) 0.5 %; EOSINOPHILS # (AUTO) 0.2 10^3/uL (0.0-0.7); EOSINOPHILS % (AUTO) 1.8 %; HGB - HEMOGLOBIN 14.3 g/dL (12.0-16.0); LYMPHOCYTES # (AUTO) 1.7 10^3/uL (1.5-3.5); LYMPHOCYTES % (AUTO) 12.5 %; MEAN CORPUSCULAR HEMOGLOBIN 31.7 pg (27.0-31.0); MEAN CORPUSCULAR VOLUME 93.1 fL (81.0-99.0); MEAN PLATELET VOLUME 9.9 fL (7.9-10.8); MONOCYTES # (AUTO) 0.9 10^3/uL (0.0-1.0); MONOCYTES % (AUTO) 6.4 %; NEUTROPHILS # (AUTO) 10.6 10^3/uL (1.5-6.6); NEUTROPHILS % (AUTO) 78.4 %; PLT - PLATELET COUNT 299 10^3/uL (130-450); RED BLOOD COUNT 4.51 10^6/uL (4.20-5.40); RED CELL DISTRIBUTION WIDTH 12.8 % (12.0-15.0); WHITE BLOOD COUNT 13.5 x10^3/uL (4.8-10.8)
[2020-04-23 17:51] LABS: INR 1.7 (0.8-1.2); PT - PROTHROMBIN TIME 18.4 secs (9.9-12.6)
[2020-04-23 18:00] LABS: ALBUMIN 4.4 g/dL (3.2-5.5); ALBUMIN/GLOBULIN RATIO 1.3 (1.0-2.2); BILIRUBIN,TOTAL 1.2 mg/dL (0.2-1.0); CALCIUM 9.9 mg/dL (8.5-10.3); CREATININE 1.7 mg/dL (0.4-1.0); TOTAL PROTEIN 7.7 g/dL (6.7-8.2)
--- NOTE | 2020-04-23 18:09 | XRAY Report ---
PROCEDURE: Chest 1 View X-Ray INDICATIONS: Chest Pain TECHNIQUE: One view of the chest was acquired. COMPARISON: 02/01/2018 FINDINGS: Surgical changes and devices: Left chest wall pacemaker position is unchanged. Lungs and pleura: No pleural effusions or pneumothorax. Lungs are clear. Mediastinum: Aortic arch calcifications are again seen. Heart size is enlarged. Bones and chest wall: No suspicious bony lesions. Overlying soft tissues appear unremarkable. IMPRESSION: No acute cardiopulmonary pathology. Reviewed by: Darek Harris MD on 04/23/2020 6:08 PM PDT Approved by: Darek Harris MD on 04/23/2020 6:08 PM PDT Station ID: [id number]
[2020-04-23 19:47] VITALS: BP 128/84
== END 2020-04-23 20:05 | disposition home or self-care (01) ==
LOC: EDUNIT# → ED 17:23
DX: M25.511 Pain in right shoulder (principal); M54.9 Dorsalgia, unspecified; E11.9 Type 2 diabetes mellitus without complications
CPT/HCPCS: 36415; 71045; 80053; 83690; 84484; 85025; 85610; 93005; 96374; 96376; 99284

== ENCOUNTER 2020-08-08 01:04 | Outpatient (CLI) | payer MEDICARE, OTHER ==
--- OUTSIDE RECORDS SUMMARY | 2020-08-15 00:30 | EXTERNAL MEDICAL SUMMARY RPT | Continuity of Care Document ---
: Demographics Phone Unavailable Preferred Language pat Marital Status Unknown Restorationist Affiliation Unknown Race Unknown Ethnic Group Unknown Author Organization [place] Address [address] [place] [address] Phone Care Team Providers Name Role Phone Jami HARRISON, Unavailable Unavailable Brad Holliday Unavailable Unavailable [place], Lizzeth Unavailable Unavailable Problems date description facility 2020-05-15 13:22 Encounter for preprocedural [facility] pital laboratory examination 2020-05-18 00:00:00 [facility] 2020-05-18 00[facility]00:[facility] 2020-05-18 00:00:00 Procedure carried out on [facility] subject [facility] 2020-05-18 11:49 Other forms of angina pectoris [facility] 2020-06-15 00:00:00 [facility] 2020[facility] Allergies date description facility NO KNOWN ENVIRONMENTAL ALLERGIES [facility] Medications date description facility 2020-05-24 00:00:00 null [facility] 2020-05-24 00:00:00 [facility] 2020-05-24 00:00:00 [facility]INE [facility] 2020-05-24 00:00:00 [facility]RINE [facility] 2020-07-03 00:00:00 null [facility] 2020-07-03 00:00:00 [facility] 2020-07-03 00:00:00 null [facility] 2020-07-03 00:00:00 null [facility] 2020-07-03 00:00:[facility] 2020-07-03 00:00:[facility] 2020-07-03 00:00:00 [facility] 2020[facility]07-[facility] 2020-07-03 00:00:00 [facility] 2020-07-03 00:00:00 [facility]VASTATIN [facility]CIUM [facility] 2020-07-03 00:00:00 [facility]OXETINE [facility] 2020-07-03 00:00:00 DILTIAZEM HCL [facility] 2020-07-03 00:00:00 [facility] 2020-07-03 00:00:00 DULOXETINE HCL [facility] 2020-07-03 00:00:00 [facility]STATIN [facility] 2020-07-03 00:00:00 DILTIAZEM HCL COATED BEADS [facility] Social History date description facility [id number]
== END 2020-08-08 01:05 | disposition short-term general hospital (02) ==
LOC: EMS 01:04
PROVIDERS: ATTEND Surgery
DX: M25.511 Pain in right shoulder (principal); M79.601 Pain in right arm
CPT/HCPCS: A0425; A0427

== ENCOUNTER 2020-11-07 15:16 | Outpatient (CLI) | payer MEDICARE, OTHER ==
--- NOTE | 2020-11-07 15:46 | XRAY Report ---
PROCEDURE: Cervical Spine 2 View INDICATIONS: NECK PAIN TECHNIQUE: 3 view(s) of the cervical spine were acquired. COMPARISON: None. FINDINGS: Bones: No fractures or dislocations to the C7 level. Loss of normal cervical lordosis. Multilevel di sc space narrowing and endplate osteophyte formation, as well as facet hypertrophy throughout the mid and lower cervical line. The lateral masses of C1 appear intact on the odontoid view. No suspicious bony lesions. Soft tissues: No prevertebral soft tissue swelling. IMPRESSION: Multilevel degenerative disc and facet disease. No acute fracture. No osseous lesion. If symptoms and/or clinical suspicion for pathology continue, further assessment with repeat plain film s, or advanced imaging (e.g., CT, MRI, or bone scan) is recommended for further assessment. Reviewed by: Ayo Chun MD on 11/07/2020 3:44 PM PDT Approved by: Ayo Chun MD on 11/07/2020 3:44 PM PDT Station ID: [id number]
== END 2020-11-07 23:59 | disposition home or self-care (01) ==
LOC: DI.WCP 15:16
PROVIDERS: ATTEND Physician Assistant Medical
DX: M47.812 Spondylosis without myelopathy or radiculopathy, cervical region (principal); M50.30 Other cervical disc degeneration, unspecified cervical region

== ENCOUNTER 2021-02-06 08:00 | Outpatient (CLI) | payer MEDICARE, OTHER ==
[2021-02-06 12:36] LABS: ESTIMATED AVERAGE GLUCOSE 146 mg/dL (70-100); HEMOGLOBIN A1c% 6.7 % (4.27-6.07)
[2021-02-06 12:40] LABS: ALBUMIN/GLOBULIN RATIO 1.1 (1.0-2.2); ALKALINE PHOSPHATASE 63 IU/L (42-121); ALT ALANINE AMINOTRANSFERASE 14 IU/L (10-60); AST ASPARTATE AMINOTRANSFERASE 22 IU/L (10-42); BILIRUBIN,TOTAL 0.6 mg/dL (0.2-1.0); BUN - BLOOD UREA NITROGEN 22 mg/dL (6-20); CALCIUM 9.6 mg/dL (8.5-10.3); CARBON DIOXIDE - CO2 29 mmol/L (21-32); CHLORIDE 101 mmol/L (101-111); CHOL/HDL RATIO 4.1 (<4.4); CHOLESTEROL 163 mg/dL; CREATININE 1.8 mg/dL (0.4-1.0); GFR - MDRD 27 (>89); GLUCOSE 147 mg/dL (70-100); HDL CHOLESTEROL 40 mg/dL; LDL CHOLESTEROL,CALCULATED 77 mg/dL; LDL/HDL RATIO 1.9 (<4.4); POTASSIUM 3.7 mmol/L (3.5-5.0); SODIUM 142 mmol/L (135-145); TOTAL PROTEIN 7.6 g/dL (6.7-8.2); TRIGLYCERIDES 230 mg/dL; VLDL CHOLESTEROL 46 mg/dL
== END 2021-02-06 23:59 | disposition home or self-care (01) ==
LOC: LAB.WCP 08:00
PROVIDERS: ATTEND Physician Assistant Medical
DX: E11.9 Type 2 diabetes mellitus without complications (principal)
CPT/HCPCS: 36415; 80053; 80061; 83036; 83721

== ENCOUNTER 2021-06-28 08:00 | Outpatient (CLI) | payer MEDICARE, OTHER ==
[2021-06-28 13:27] LABS: CALCIUM 9.7 mg/dL (8.5-10.3); CREATININE 1.7 mg/dL (0.4-1.0); POTASSIUM 3.4 mmol/L (3.5-5.0)
[2021-06-28 13:40] LABS: CREATININE,URINE 139.6 mg/dL; MICROALBUM/CREATININE RATIO,UR 50.1 ug/mg (<30.0)
[2021-06-28 14:38] LABS: ESTIMATED AVERAGE GLUCOSE 183 mg/dL (70-100)
== END 2021-06-28 23:59 ==
LOC: LAB.WCP 08:00
PROVIDERS: ATTEND Physician Assistant Medical
DX: E11.9 Type 2 diabetes mellitus without complications (principal)
CPT/HCPCS: 36415; 80048; 82043; 82570; 83036

== ENCOUNTER 2021-08-23 07:28 | Outpatient (CLI) | payer MEDICARE, OTHER | END 2021-08-23 07:29 | disposition home or self-care (01) | LOC: DI 07:28 | PROVIDERS: ATTEND Nurse Practitioner Family | DX: I48.91 Unspecified atrial fibrillation (principal); I51.7 Cardiomegaly | CPT/HCPCS: 93306 ==

== ENCOUNTER 2021-09-12 13:58 | Outpatient (CLI) | payer MEDICARE, OTHER | END 2021-09-12 13:59 | disposition critical access hospital (66) | LOC: EMS 13:58 | DX: R07.89 Other chest pain (principal) | CPT/HCPCS: A0425; A0429 ==

== ENCOUNTER 2021-09-12 14:17 | Emergency (ER) | payer MEDICARE, OTHER ==
[2021-09-12 14:48] LABS: BASOPHILS # (AUTO) 0.1 10^3/uL (0.0-0.1); BASOPHILS % (AUTO) 0.4 %; EOSINOPHILS # (AUTO) 0.1 10^3/uL (0.0-0.7); EOSINOPHILS % (AUTO) 1.2 %; HCT - HEMATOCRIT 42.7 % (37.0-47.0); HGB - HEMOGLOBIN 14.2 g/dL (12.0-16.0); LYMPHOCYTES # (AUTO) 1.5 10^3/uL (1.5-3.5); MEAN CORPUSCULAR HEMOGLOBIN 30.3 pg (27.0-31.0); MEAN CORPUSCULAR HGB CONC 33.3 g/dL (32.0-36.0); MEAN PLATELET VOLUME 10.1 fL (7.9-10.8); MONOCYTES # (AUTO) 0.7 10^3/uL (0.0-1.0); MONOCYTES % (AUTO) 5.6 %; NEUTROPHILS # (AUTO) 9.1 10^3/uL (1.5-6.6); NEUTROPHILS % (AUTO) 79.3 %; PLT - PLATELET COUNT 341 10^3/uL (130-450); RED BLOOD COUNT 4.69 10^6/uL (4.20-5.40); RED CELL DISTRIBUTION WIDTH 13.2 % (12.0-15.0); WHITE BLOOD COUNT 11.5 x10^3/uL (4.8-10.8)
[2021-09-12 15:02] LABS: INR 1.6 (0.8-1.2); PT - PROTHROMBIN TIME 18.2 secs (9.9-12.6)
[2021-09-12 15:03] LABS: ALBUMIN 3.8 g/dL (3.2-5.5); ALBUMIN/GLOBULIN RATIO 1.1 (1.0-2.2); BILIRUBIN,TOTAL 0.9 mg/dL (0.2-1.0); CALCIUM 9.4 mg/dL (8.5-10.3); CREATININE 1.7 mg/dL (0.4-1.0); POTASSIUM 3.6 mmol/L (3.5-5.0); TOTAL PROTEIN 7.2 g/dL (6.7-8.2)
[2021-09-12 15:09] LABS: PARTIAL THROMBOPLASTIN TIME 42.8 secs (24.9-33.3)
--- NOTE | 2021-09-12 15:11 | ED Physician Documentation ---
History of Present Illness - Stated complaint Stated Complaint: CP - Chief complaint Chief Complaint: Cardiac - Additonal information Additional information: 86-year-old female presents to the emergency department for evaluation of sudden onset chest pain, palpitations and vomiting. She comes to us from [facility]. She states that the symptoms lasted for about 10 minutes and then fully resolved. Right now she reports that she is free of chest pain and has no complaints and would like to be discharged home. Past medical history is most significant for atrial fibrillation for which she is anticoagulated as well as insulin-dependent diabetes. Review of Systems Constitutional: denies: Fever, Chills Eyes: reports: Reviewed and negative Nose: reports: Reviewed and negative Throat: reports: Reviewed and negative Cardiac: reports: Chest pain / pressure, Palpitations. denies: Pedal edema, Calf pain Respiratory: reports: Reviewed and negative GI: reports: Nausea, Vomiting. 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 : Renal insuffiency HEENT: Chronic hearing loss Psych: Anxiety, Other Musculoskeletal: Osteoarthritis, Fatigue, Chronic back pain Derm: None - Past Surgical History Past Surgical History: Yes General: Appendectomy Ortho: Other /LAMINATING PRESS OPERATOR: Hysterectomy Cardiovascular: Pacemaker HEENT: Tonsil/Adenoidectomy - Present Medications Home Medications: Ambulatory Orders Medication Instructions Recorded Confirmed Alendronate Sodium [Fosamax] 1 tab PO ONCE 12/28/13 02/01/18 Atorvastatin Calcium [Lipitor] 40 mg PO DAILY 12/28/13 02/01/18 Digoxin 125 mcg PO DAILY 12/28/13 02/01/18 Diltiazem HCl [Cardizem Cd] 180 mg PO DAILY 12/28/13 02/01/18 Fluticasone [Flonase] 1 spray OZZIE BID 12/28/13 02/01/18 Furosemide [Lasix] 20 mg PO BID 12/28/13 02/01/18 HYDROcod/ACETAM 5/325 [Vicodin 1 tab PO Q4HR PRN 12/28/13 02/01/18 5/325] Potassium Chloride Oral Soln 5 ml PO DAILY 12/28/13 02/01/18 [Potassium Chloride] Warfarin Sodium [Coumadin] 2 mg PO DAILY 12/28/13 02/01/18 Zolpidem Tartrate [Ambien] 2.5 mg PO DAILY 12/28/13 02/01/18 Sertraline HCl [Zoloft] 100 mg PO DAILY 03/11/14 02/01/18 HYDROcod/ACETAM 5/325 [[place] 5/325] 1 each PO Q12H PRN 5 Days #10 04/23/20 tablet Lidocaine Patch 5% [Lidoderm Patch] 1 each TOP DAILY 30 Days #30 patch 04/23/20 Insulin NPH Human Isophane 10 unit SUBQ DAILY PM 09/12/21 09/12/21 [Humulin N Kwikpen] Insulin NPH Human Isophane 20 unit DAILY 09/12/21 09/12/21 [Humulin N Kwikpen] Rivaroxaban [Xarelto] 15 mg PO DAILY 09/12/21 09/12/21 - Allergies Allergies/Adverse Reactions: Allergies Allergy/AdvReac Type Severity Reaction Status Date / Time hay fever Allergy Unknown Uncoded 04/25/20 09:50 wasp Allergy Unknown Uncoded 04/25/20 09:49 - Social History Does the pt smoke?: No Smoking Status: Never smoker Does the pt drink ETOH?: Yes Does the pt have substance abuse?: No - Immunizations Immunizations are current?: Yes - POLST Patient has POLST: No PD ED PE NORMAL - General General: Alert and oriented X 3, No acute distress, Well developed/nourished - HEENT HEENT: Atraumatic, Ears normal, Moist mucous membranes - Cardiac Cardiac: No murmur, No gallop. No: RRR - Respiratory Respiratory: No respiratory distress, Clear bilaterally - Abdomen Abdomen: Normal bowel sounds, Soft - Back Back: No CVA TTP, No spinal TTP Results - Vitals Vitals: Vital Signs - 24 hr 09/12/21 09/12/21 09/12/21 14:29 14:38 15:08 Temperature 36.8 C Heart Rate 88 86 80 Respiratory 14 Rate Blood Pressure 108/69 O2 Saturation 98 09/12/21 15:37 Temperature Heart Rate 82 Respiratory 22 Rate Blood Pressure 110/77 O2 Saturation 95 Oxygen O2 Source Room air - EKG (time done) 1500 Rate: Rate (enter#) (85) Rhythm: Atrial fibrillation Intervals: RBBB. No: Prolonged QT QRS: Normal Ischemia: Normal ST segments Compare to prior EKG: Unchanged from prior EKG Computer interpretation: Agree with computer - Labs Labs: Laboratory Tests 09/12/21 09/12/21 09/12/21 14:32 14:32 14:32 WBC 11.5 H RBC 4.69 Hgb 14.2 Hct 42.7 MCV 91.0 MCH 30.3 MCHC 33.3 RDW 13.2 Plt Count 341 MPV 10.1 Neut # (Auto) 9.1 H Lymph # (Auto) 1.5 Ness # (Auto) 0.7 Eos # (Auto) 0.1 Baso # (Auto) 0.1 Absolute Nucleated RBC 0.00 Nucleated RBC % 0.0 PT 18.2 H INR 1.6 H APTT 42.8 H Sodium 139 Potassium 3.6 Chloride 102 Carbon Dioxide 25 Anion Gap 12.0 BUN 22 H Creatinine 1.7 H Estimated GFR (MDRD) 29 L Glucose 177 H Calcium 9.4 Total Bilirubin 0.9 AST 32 ALT 17 Alkaline Phosphatase 66 Troponin I High Sens B-Natriuretic Peptide Total Protein 7.2 Albumin 3.8 Globulin 3.4 Albumin/Globulin Ratio 1.1 Lipase 47 09/12/21 09/12/21 09/12/21 14:32 14:32 15:47 WBC RBC Hgb Hct MCV MCH MCHC RDW Plt Count MPV Neut # (Auto) Lymph # (Auto) Ness # (Auto) Eos # (Auto) Baso # (Auto) Absolute Nucleated RBC Nucleated RBC % PT INR APTT Sodium Potassium Chloride Carbon Dioxide Anion Gap BUN Creatinine Estimated GFR (MDRD) Glucose Calcium Total Bilirubin AST ALT Alkaline Phosphatase Troponin I High Sens 6.4 6.4 B-Natriuretic Peptide 179 H Total Protein Albumin Globulin Albumin/Globulin Ratio Lipase - Rads (name of study) cxr Radiology: Final report received (No acute cardiopulmonary process) PD MEDICAL DECISION MAKING - ED course Complexity details: reviewed results, re-evaluated patient ED course: 86-year-old female is brought to the emergency department for evaluation of palpitations and chest pain that occurred at her adult family home. She reports that she was eating when she began to feel a racing heart then had some nausea and vomiting with chest pain. She is brought here to the ER. Past medical history is most significant for insulin-dependent diabetes as well as atrial fibrillation. She is anticoagulated. On presentation to the ER she is now free of symptoms. Has no further palpitations or chest pain. She is requesting to be discharged home at this time. Screening EKG shows an unchanged atrial fib with a rate control in the 80s. Chest x-ray is without acute focal findings. Screening labs are essentially unremarkable. Initial troponin is negative but given that she presented less than 2 hours after her event a second troponin was repeated and is negative. On reevaluation the patient is feeling better and will now be discharged home. I did review the recent echocardiogram that did not show any worrisome findings and had a preserved ejection fraction of 55 to 60%. Patient will continue follow-up with her primary care provider. Departure - Departure Disposition: Home, Self Care Clinical Impression: Palpitations Atrial fibrillation Qualifiers: Atrial fibrillation type: unspecified chronic Qualified Code(s): I48.20 - Chronic atrial fibrillation, unspecified; I48.2 - Chronic atrial fibrillation Chest pain Qualifiers: Chest pain type: other chest pain Qualified Code(s): R07.89 - Other chest pain; R07.8 - Other chest pain Condition: Stable Record reviewed to determine appropriate education?: Yes Comments: Margaret was seen in the emergency department today for developing chest pain, palpitations and nausea and vomiting while eating. By the time that she presented to the emergency department with EMS that she was free of these symptoms. Her screening EKG shows atrial fibrillation with a good rate in the 80s. While here in the emergency department she has not had any rapid response or high rate. Screening chest x-ray and labs were also essentially unremarkable. 2 troponins to measure as a marker of heart attack were also negative. She did have a reassuring echocardiogram in July. She is to continue taking her routine medications. If at any point she develops sustained chest pain, has any fainting episodes or severe shortness of breath she should return to the ER.
--- NOTE | 2021-09-12 15:22 | XRAY Report ---
PROCEDURE: Chest 1 View X-Ray INDICATIONS: Chest Pain TECHNIQUE: One view of the chest was acquired. COMPARISON: 04/23/2020 FINDINGS: Surgical changes and devices: Dual-lead left-sided pacemaker. Calcified left hilar lymph nodes.. Lungs and pleura: No pleural effusions or pneumothorax. Lungs are clear. Mediastinum: Mediastinal contours appear normal. Heart size is minimally enlarged, stable. Bones and chest wall: No suspicious bony lesions. Rightward scoliosis. Overlying soft tissues appear unremarkable. IMPRESSION: No acute disease. Reviewed by: Kristi Hester MD on 09/12/2021 3:21 PM PST Approved by: Kristi Hester MD on 09/12/2021 3:21 PM PST Station ID: [id number]
[2021-09-12 17:14] VITALS: BP 114/82
== END 2021-09-12 17:14 | disposition home or self-care (01) ==
LOC: EDUNIT# → ED 14:17
DX: R07.9 Chest pain, unspecified (principal); R00.2 Palpitations; I48.20 Chronic atrial fibrillation, unspecified; E11.22 Type 2 diabetes mellitus with diabetic chronic kidney disease; I12.9 Hypertensive chronic kidney disease with stage 1 through stage 4 chronic kidney disease, or unspecified chronic kidney disease; N18.9 Chronic kidney disease, unspecified; Z79.4 Long term (current) use of insulin; Z79.01 Long term (current) use of anticoagulants
CPT/HCPCS: 36415; 80053; 83690; 83880; 84484; 85025; 85610; 85730; 93005; 99283; 99284

== ENCOUNTER 2021-11-01 08:37 | Outpatient (CLI) | payer MEDICARE, OTHER ==
[2021-11-01 12:37] LABS: ESTIMATED AVERAGE GLUCOSE 174 mg/dL (70-100); HEMOGLOBIN A1c% 7.7 % (4.27-6.07)
[2021-11-01 12:38] LABS: THYROID STIMULATING HORMONE 4.36 uIU/mL (0.34-5.60)
[2021-11-01 12:44] LABS: ALBUMIN 4.1 g/dL (3.2-5.5); ALBUMIN/GLOBULIN RATIO 1.1 (1.0-2.2); ALKALINE PHOSPHATASE 66 IU/L (42-121); ALT ALANINE AMINOTRANSFERASE 14 IU/L (10-60); AST ASPARTATE AMINOTRANSFERASE 23 IU/L (10-42); BILIRUBIN,TOTAL 0.6 mg/dL (0.2-1.0); BUN - BLOOD UREA NITROGEN 27 mg/dL (6-20); CALCIUM 9.7 mg/dL (8.5-10.3); CARBON DIOXIDE - CO2 26 mmol/L (21-32); CHLORIDE 101 mmol/L (101-111); CHOL/HDL RATIO 2.8 (<4.4); CHOLESTEROL 146 mg/dL; CREATININE 1.6 mg/dL (0.4-1.0); GFR - MDRD 31 (>89); GLUCOSE 113 mg/dL (70-100); HDL CHOLESTEROL 52 mg/dL; LDL CHOLESTEROL,CALCULATED 73 mg/dL; LDL/HDL RATIO 1.4 (<4.4); SODIUM 139 mmol/L (135-145); TOTAL PROTEIN 7.7 g/dL (6.7-8.2); TRIGLYCERIDES 107 mg/dL; VLDL CHOLESTEROL 21 mg/dL
== END 2021-11-01 08:38 | disposition home or self-care (01) ==
LOC: LAB.N 08:37
PROVIDERS: ATTEND Physician Assistant Medical
DX: E11.9 Type 2 diabetes mellitus without complications (principal)
CPT/HCPCS: 36415; 80053; 80061; 83036; 83721; 84443

== ENCOUNTER 2022-02-28 08:50 | Outpatient (CLI) | payer MEDICARE, OTHER ==
[2022-02-28 12:26] LABS: ESTIMATED AVERAGE GLUCOSE 194 mg/dL (70-100); HEMOGLOBIN A1c% 8.4 % (4.27-6.07)
[2022-02-28 12:31] LABS: CALCIUM 9.6 mg/dL (8.5-10.3); CREATININE 1.8 mg/dL (0.4-1.0); POTASSIUM 3.6 mmol/L (3.5-5.0)
== END 2022-02-28 08:51 | disposition home or self-care (01) ==
LOC: LAB.N 08:50
PROVIDERS: ATTEND Physician Assistant Medical
DX: E11.9 Type 2 diabetes mellitus without complications (principal)
CPT/HCPCS: 36415; 80048; 83036

== ENCOUNTER 2022-05-28 09:28 | Outpatient (CLI) | payer MEDICARE, OTHER ==
[2022-05-28 12:20] LABS: ESTIMATED AVERAGE GLUCOSE 235 mg/dL (70-100); HEMOGLOBIN A1c% 9.8 % (4.27-6.07)
[2022-05-28 12:23] LABS: ALBUMIN 4.2 g/dL (3.2-5.5); ALBUMIN/GLOBULIN RATIO 1.1 (1.0-2.2); ALKALINE PHOSPHATASE 65 IU/L (42-121); ALT ALANINE AMINOTRANSFERASE 13 IU/L (10-60); AST ASPARTATE AMINOTRANSFERASE 20 IU/L (10-42); BILIRUBIN,TOTAL 0.8 mg/dL (0.2-1.0); BUN - BLOOD UREA NITROGEN 25 mg/dL (6-20); CALCIUM 9.7 mg/dL (8.5-10.3); CARBON DIOXIDE - CO2 27 mmol/L (21-32); CHLORIDE 97 mmol/L (101-111); CHOL/HDL RATIO 4.4 (<4.4); CHOLESTEROL 195 mg/dL; CREATININE 1.8 mg/dL (0.4-1.0); GFR - MDRD 27 (>89); GLUCOSE 184 mg/dL (70-100); HDL CHOLESTEROL 44 mg/dL; LDL CHOLESTEROL,CALCULATED 119 mg/dL; LDL/HDL RATIO 2.7 (<4.4); POTASSIUM 3.9 mmol/L (3.5-5.0); SODIUM 137 mmol/L (135-145); TRIGLYCERIDES 158 mg/dL; VLDL CHOLESTEROL 32 mg/dL
== END 2022-05-28 09:29 | disposition home or self-care (01) ==
LOC: LAB.N 09:28
PROVIDERS: ATTEND Physician Assistant Medical
DX: E11.9 Type 2 diabetes mellitus without complications (principal)
CPT/HCPCS: 36415; 80053; 80061; 83036; 83721

== ENCOUNTER 2022-06-25 01:12 | Outpatient (CLI) | payer MEDICARE, OTHER | END 2022-06-25 01:13 | disposition critical access hospital (66) | LOC: EMS 01:12 | DX: R07.9 Chest pain, unspecified (principal); I48.91 Unspecified atrial fibrillation | CPT/HCPCS: A0425; A0427 ==

== ENCOUNTER 2022-06-25 01:28 | Emergency (ER) | payer MEDICARE, OTHER ==
[2022-06-25 02:07] LABS: BASOPHILS % (AUTO) 0.4 %; EOSINOPHILS # (AUTO) 0.2 10^3/uL (0.0-0.7); EOSINOPHILS % (AUTO) 1.7 %; HCT - HEMATOCRIT 41.6 % (37.0-47.0); HGB - HEMOGLOBIN 13.7 g/dL (12.0-16.0); LYMPHOCYTES # (AUTO) 2.3 10^3/uL (1.5-3.5); LYMPHOCYTES % (AUTO) 20.2 %; MEAN CORPUSCULAR HEMOGLOBIN 30.4 pg (27.0-31.0); MEAN CORPUSCULAR HGB CONC 32.9 g/dL (32.0-36.0); MEAN CORPUSCULAR VOLUME 92.2 fL (81.0-99.0); MEAN PLATELET VOLUME 9.8 fL (7.9-10.8); MONOCYTES # (AUTO) 0.6 10^3/uL (0.0-1.0); MONOCYTES % (AUTO) 5.6 %; NEUTROPHILS % (AUTO) 71.7 %; PLT - PLATELET COUNT 381 10^3/uL (130-450); RED BLOOD COUNT 4.51 10^6/uL (4.20-5.40); RED CELL DISTRIBUTION WIDTH 12.5 % (12.0-15.0); WHITE BLOOD COUNT 11.2 x10^3/uL (4.8-10.8)
[2022-06-25] MEDS ORDERED: SODIUM CHLORIDE 0.9% 500 ML IV STA (02:09)
[2022-06-25 02:16] LABS: ALBUMIN 3.7 g/dL (3.2-5.5); BILIRUBIN,TOTAL 0.7 mg/dL (0.2-1.0); CALCIUM 9.8 mg/dL (8.5-10.3); CREATININE 1.7 mg/dL (0.4-1.0); POTASSIUM 4.1 mmol/L (3.5-5.0); TOTAL PROTEIN 7.4 g/dL (6.7-8.2)
[2022-06-25 02:32] LABS: INR 1.3 (0.8-1.2); PT - PROTHROMBIN TIME 14.4 secs (9.9-12.6)
--- NOTE | 2022-06-25 02:37 | ED Physician Documentation ---
PD HPI CHEST PAIN - Stated complaint Stated Complaint: CHEST PX - Chief complaint Chief Complaint: Cardiac - History obtained from History obtained from: Patient, EMS - Additional information Additional information: Patient is an 86-year-old female with a history of atrial fibrillation (anticoagulated on Xarelto) presenting for evaluation up left-sided chest pain that started around 11 PM as she was getting ready for bed. Patient is a resident of a [facility] living facility. The pain did not radiate. She is unable to describe it further than pain.She has nitroglycerin prescribed to her and was given 2 doses of this along with aspirin. She denies that it changed her symptoms. Her pain resolved after 20 minutes.She denies any known exacerbating factors. She has had similar presentations in the past. She reports currently being symptom free. She denies recent illness. She denies difficulty breathing. 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 : Renal insuffiency HEENT: Chronic hearing loss Psych: Anxiety, Other Musculoskeletal: Osteoarthritis, Fatigue, Chronic back pain Derm: None - Past Surgical History Past Surgical History: Yes General: Appendectomy Ortho: Other /ANCHOR OPERATOR: Hysterectomy Cardiovascular: Pacemaker HEENT: Tonsil/Adenoidectomy - Present Medications Home Medications: Ambulatory Orders Medication Instructions Recorded Confirmed Alendronate Sodium [Fosamax] 1 tab PO ONCE 12/28/13 06/25/22 Atorvastatin Calcium [Lipitor] 40 mg PO DAILY 12/28/13 06/25/22 Digoxin 125 mcg PO DAILY 12/28/13 06/25/22 Diltiazem HCl [Cardizem Cd] 180 mg PO DAILY 12/28/13 06/25/22 Fluticasone [Flonase] 1 spray OZZIE BID 12/28/13 06/25/22 Furosemide [Lasix] 20 mg PO BID 12/28/13 06/25/22 Potassium Chloride Oral Soln 5 ml PO DAILY 12/28/13 06/25/22 [Potassium Chloride] Zolpidem Tartrate [Ambien] 2.5 mg PO DAILY 12/28/13 06/25/22 Sertraline HCl [Zoloft] 100 mg PO DAILY 03/11/14 06/25/22 Lidocaine Patch 5% [Lidoderm Patch] 1 each TOP DAILY 30 Days #30 patch 04/23/20 06/25/22 Insulin NPH Human Isophane 10 unit SUBQ DAILY PM 09/12/21 06/25/22 [Humulin N Kwikpen] Insulin NPH Human Isophane 20 unit DAILY 09/12/21 06/25/22 [Humulin N Kwikpen] Rivaroxaban [Xarelto] 15 mg PO DAILY 09/12/21 06/25/22 - Allergies Allergies/Adverse Reactions: Allergies Allergy/AdvReac Type Severity Reaction Status Date / Time hay fever Allergy Unknown Uncoded 06/25/22 01:34 wasp Allergy Unknown Uncoded 06/25/22 01:34 - Social History Does the pt smoke?: No Smoking Status: Never smoker Does the pt drink ETOH?: Yes Does the pt have substance abuse?: No - Immunizations Immunizations are current?: Yes - POLST Patient has POLST: No PD ED PE NORMAL - General General: Alert and oriented X 3, No acute distress, Well developed/nourished - HEENT HEENT: Atraumatic, Moist mucous membranes - Neck Neck: Supple, no meningeal sign - Cardiac Cardiac: Strong equal pulses, Other (Irregularly irregular, tachycardic in low 1 00s) - Respiratory Respiratory: No respiratory distress, Clear bilaterally - Abdomen Abdomen: Soft, Non tender - Extremities Extremities: No calf tenderness / cord Results - Vitals Vitals: Vital Signs - 24 hr 06/25/22 06/25/22 06/25/22 01:34 01:40 02:05 Temperature 97.9 C H Heart Rate 118 H 110 H 116 H Respiratory 20 15 16 Rate Blood Pressure 113/63 96/60 O2 Saturation 99 97 98 06/25/22 06/25/22 06/25/22 02:30 02:58 03:00 Temperature 37.1 C Heart Rate 110 H 91 Respiratory 12 16 12 Rate Blood Pressure 96/60 97/74 O2 Saturation 98 95 06/25/22 03:30 Temperature Heart Rate 76 Respiratory 15 Rate Blood Pressure 98/75 O2 Saturation 95 Oxygen O2 Source Room air - EKG (time done) 0133 Rate: Rate (enter#) (104) Rhythm: Atrial fibrillation Intervals: RBBB. No: Prolonged QT Ischemia: No: ST elevation c/w ischemia - Labs Labs: Laboratory Tests 06/25/22 06/25/22 06/25/22 01:56 01:56 01:56 WBC 11.2 H RBC 4.51 Hgb 13.7 Hct 41.6 MCV 92.2 MCH 30.4 MCHC 32.9 RDW 12.5 Plt Count 381 MPV 9.8 Neut # (Auto) 8.0 H Lymph # (Auto) 2.3 [place] # (Auto) 0.6 Eos # (Auto) 0.2 Baso # (Auto) 0.0 Absolute Nucleated RBC 0.00 Nucleated RBC % 0.0 PT 14.4 H INR 1.3 H Sodium 136 Potassium 4.1 Chloride 100 L Carbon Dioxide 25 Anion Gap 11.0 BUN 31 H Creatinine 1.7 H Estimated GFR (MDRD) 29 L Glucose 186 H Calcium 9.8 Total Bilirubin 0.7 AST 21 ALT 14 Alkaline Phosphatase 73 Troponin I High Sens Total Protein 7.4 Albumin 3.7 Globulin 3.7 Albumin/Globulin Ratio 1.0 06/25/22 06/25/22 01:56 03:20 WBC RBC Hgb Hct MCV MCH MCHC RDW Plt Count MPV Neut # (Auto) Lymph # (Auto) [place] # (Auto) Eos # (Auto) Baso # (Auto) Absolute Nucleated RBC Nucleated RBC % PT INR Sodium Potassium Chloride Carbon Dioxide Anion Gap BUN Creatinine Estimated GFR (MDRD) Glucose Calcium Total Bilirubin AST ALT Alkaline Phosphatase Troponin I High Sens 6.8 6.1 Total Protein Albumin Globulin Albumin/Globulin Ratio PD MEDICAL DECISION MAKING - ED course Complexity details: reviewed results, re-evaluated patient, d/w patient, d/w family ED course: 0215 - Patient feeling better, remains pain-free. Family member at bedside. Patient is wanting to go home. Discussed plan for further to observation given presentation occurred quickly after onset of pain. Patient presenting for evaluation of chest pain. Has a history of A. fib and appears to be in A. fib here. She is anticoagulated. Her labs were reviewed and are reassuring. High-sensitivity troponins are negative x2. She is pain- free here. She is rate controlled. No symptoms to suggest fluid overload. Doubt infection.Patient counseled on need for close follow-up with PCP as well as advised on concerning symptoms. Departure - Departure Disposition: 01 Home, Self Care Clinical Impression: Chest pain, Chronic atrial fibrillation Condition: Stable Instructions: ED Chest Pain Atypical Unkn Cause Comments: The exact cause of your chest pain is unclear but at this time your lab test do not show signs of a heart attack. Please follow-up with your primary care doctor. If you have any new or worsening symptoms please return to the ER.
[2022-06-25 04:12] VITALS: BP 100/65
--- NOTE | 2022-06-25 09:39 | XRAY Report ---
PROCEDURE: Chest 1 View X-Ray INDICATIONS: cp TECHNIQUE: One view of the chest was acquired. COMPARISON: CXR 09/12/2021. FINDINGS: Surgical changes and devices: Left pacemaker with right atrial and right ventricular leads. Lungs and pleura: No pleural effusions or pneumothorax. Hazy opacity at the right lung base. Mediastinum: Mediastinal contours appear normal. Heart size is prominent. Bones and chest wall: No suspicious bony lesions. Mild scoliosis. Overlying soft tissues appear unr emarkable. IMPRESSION: Hazy opacity right lung base. This could represent atelectasis or pneumonia. This report is concordant with the overnight preliminary interpretation. Reviewed by: Hioplito Wright MD on 06/25/2022 9:37 AM PST Approved by: Hipolito Wright MD on 06/25/2022 9:37 AM [facility] Station ID: [id number]
== END 2022-06-25 04:10 | disposition home or self-care (01) ==
LOC: EDUNIT# → ED 01:28
DX: R07.9 Chest pain, unspecified (principal); I48.20 Chronic atrial fibrillation, unspecified; Z79.01 Long term (current) use of anticoagulants; I45.10 Unspecified right bundle-branch block; I10 Essential (primary) hypertension; E11.9 Type 2 diabetes mellitus without complications; Z79.4 Long term (current) use of insulin; Z79.899 Other long term (current) drug therapy
CPT/HCPCS: 36415; 80053; 84484; 85025; 85610; 93005; 99282; 99284

== ENCOUNTER 2022-08-28 09:29 | Outpatient (CLI) | payer MEDICARE, OTHER ==
[2022-08-28 12:16] LABS: CALCIUM 10.3 mg/dL (8.5-10.3); CREATININE 1.6 mg/dL (0.4-1.0); POTASSIUM 3.5 mmol/L (3.5-5.0)
[2022-08-28 13:26] LABS: ESTIMATED AVERAGE GLUCOSE 220 mg/dL (70-100); HEMOGLOBIN A1c% 9.3 % (4.27-6.07)
== END 2022-08-28 09:30 | disposition home or self-care (01) ==
LOC: LAB.N 09:29
PROVIDERS: ATTEND Physician Assistant Medical
DX: E11.9 Type 2 diabetes mellitus without complications (principal)
CPT/HCPCS: 36415; 80048; 83036

== ENCOUNTER 2023-01-02 08:45 | Outpatient (CLI) | payer MEDICARE, OTHER ==
[2023-01-02 12:57] LABS: CALCIUM 9.3 mg/dL (8.5-10.3); CREATININE 1.7 mg/dL (0.4-1.0); POTASSIUM 3.9 mmol/L (3.5-5.0)
[2023-01-02 13:32] LABS: ESTIMATED AVERAGE GLUCOSE 194 mg/dL (70-100); HEMOGLOBIN A1c% 8.4 % (4.27-6.07)
== END 2023-01-02 08:46 | disposition home or self-care (01) ==
LOC: LAB.N 08:45
PROVIDERS: ATTEND Physician Assistant Medical
DX: E11.9 Type 2 diabetes mellitus without complications (principal)
CPT/HCPCS: 36415; 80048; 83036

== ENCOUNTER 2023-02-23 20:17 | Outpatient (CLI) | payer MEDICARE, OTHER | END 2023-02-23 20:18 | disposition critical access hospital (66) | LOC: EMS 20:17 | DX: R07.9 Chest pain, unspecified (principal); Z95.0 Presence of cardiac pacemaker | CPT/HCPCS: A0425; A0427 ==

== ENCOUNTER 2023-02-23 20:33 | Emergency (ER) | payer MEDICARE, OTHER ==
--- NOTE | 2023-02-23 20:40 | ED Physician Documentation ---
History of Present Illness - Stated complaint Stated Complaint: CHEST PX - History obtained from History obtained from: Patient, EMS - Additonal information Additional information: The patient is brought to the emergency department by EMS for chief complaint of substernal chest pain that started this evening about an hour ago while she was watching TV. The patient lives at [facility], and called for assistance at that time. Staff gave her a total of 3 nitroglycerin tablets and 4 baby aspirins. The patient went from an 910 to a 6/10 by the time the medics arrived and her discomfort completely subsided subsided over the course of transport. The patient did not have any nausea or shortness of breath. No palpitations. The patient does have a ventricular pacemaker on demand and medics report that it did kick in initially but that they also got a known paced rhythm afterward on their twelve-lead. The patient denies any complaints now and states she feels completely better. She has a history of CHF, A-fib, and coronary artery disease. She currently takes digoxin. The episode lasted approximately 10 minutes total. No other complaints at this time. 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: Hysterectomy Cardiovascular: Pacemaker HEENT: Tonsil/Adenoidectomy - Present Medications Home Medications: Ambulatory Orders Medication Instructions Recorded Confirmed Alendronate Sodium [Fosamax] 1 tab PO ONCE 12/28/13 06/25/22 Atorvastatin Calcium [Lipitor] 40 mg PO DAILY 12/28/13 06/25/22 Digoxin 125 mcg PO DAILY 12/28/13 06/25/22 Diltiazem HCl [Cardizem Cd] 180 mg PO DAILY 12/28/13 06/25/22 Fluticasone [Flonase] 1 spray OZZIE BID 12/28/13 06/25/22 Furosemide [Lasix] 20 mg PO BID 12/28/13 06/25/22 Potassium Chloride Oral Soln 5 ml PO DAILY 12/28/13 06/25/22 [Potassium Chloride] Zolpidem Tartrate [Ambien] 2.5 mg PO DAILY 12/28/13 06/25/22 Sertraline HCl [Zoloft] 100 mg PO DAILY 03/11/14 06/25/22 Lidocaine Patch 5% [Lidoderm Patch] 1 each TOP DAILY 30 Days #30 patch 04/23/20 06/25/22 Insulin NPH Human Isophane 10 unit SUBQ DAILY PM 09/12/21 06/25/22 [Humulin N Kwikpen] Insulin NPH Human Isophane 20 unit DAILY 09/12/21 06/25/22 [Humulin N Kwikpen] Rivaroxaban [Xarelto] 15 mg PO DAILY 09/12/21 06/25/22 - Allergies Allergies/Adverse Reactions: Allergies Allergy/AdvReac Type Severity Reaction Status Date / Time hay fever Allergy Unknown Uncoded 02/23/23 20:40 wasp Allergy Unknown Uncoded 02/23/23 20:40 - Social History Does the pt smoke?: No Smoking Status: Never smoker Does the pt drink ETOH?: Yes Does the pt have substance abuse?: No - Immunizations Immunizations are current?: Yes - POLST Patient has POLST: No Results - Vitals Vitals: Oxygen O2 Source Room air - EKG (time done) 203 EKG releavant findings:: EKG personally interpreted by author of this note. Relevant findings are: Rate: Rate (enter#) (96) Rhythm: Paced [place]: Normal Intervals: RBBB QRS: Normal Ischemia: Normal ST segments Compare to prior EKG: Old EKG unavailable Computer interpretation: Agree with computer - Labs Labs: Laboratory Tests 02/23/23 02/23/23 02/23/23 20:54 20:54 20:54 WBC 8.7 RBC 4.32 Hgb 13.1 Hct 39.9 MCV 92.4 MCH 30.3 MCHC 32.8 RDW 12.8 Plt Count 281 MPV 10.0 Neut # (Auto) 5.6 Lymph # (Auto) 2.2 [place] # (Auto) 0.7 Eos # (Auto) 0.2 Baso # (Auto) 0.0 Absolute Nucleated RBC 0.00 Nucleated RBC % 0.0 Sodium 136 Potassium 3.6 Chloride 103 Carbon Dioxide 24 Anion Gap 9.0 BUN 23 H Creatinine 1.6 H Estimated GFR (MDRD) 31 L Glucose 231 H Calcium 9.0 Total Bilirubin 0.5 AST 14 ALT 8 L Alkaline Phosphatase 59 Troponin I High Sens 7.6 Total Protein 6.7 Albumin 3.9 Globulin 2.8 Albumin/Globulin Ratio 1.4 Lipase 58 Last Dose Date Last Dose Time Digoxin 02/23/23 02/23/23 20:54 22:42 WBC RBC Hgb Hct MCV MCH MCHC RDW Plt Count MPV Neut # (Auto) Lymph # (Auto) [place] # (Auto) Eos # (Auto) Baso # (Auto) Absolute Nucleated RBC Nucleated RBC % Sodium Potassium Chloride Carbon Dioxide Anion Gap BUN Creatinine Estimated GFR (MDRD) Glucose Calcium Total Bilirubin AST ALT Alkaline Phosphatase Troponin I High Sens 6.7 Total Protein Albumin Globulin Albumin/Globulin Ratio Lipase Last Dose Date UNK Last Dose Time UNK Digoxin 0.5 PD Medical Decision Making - ED course Complexity details: reviewed old records, reviewed results, re-evaluated patient, considered differential, d/w patient ED course: The patient was worked up with laboratory studies including CBC, ER abdominal panel, troponin, as well as EKG and chest x-ray. She was very well-appearing upon arrival in the emergency department. The patient's work-up, including serial troponins, was unremarkable. The patient was pain-free on reevaluation and I felt she was stable for discharge home. We have discussed the need for f ollow-up, as well as the usual indications for return. Departure - Departure Disposition: 01 Home, Self Care Clinical Impression: Chest pain Condition: Stable Instructions: ED Chest Pain Atypical Unkn Cause Comments: Your EKG, chest x-ray, and all of your labs including 2 sets of cardiac enzymes look good. Your heart rhythm has also looked good here. You most likely had an episode of your angina at home and this is what caused the pain you had while you are watching TV. This has resolved now though and since everything else is reassuring, we will let you go home. Please follow-up with your primary doctor for any further concerns. Forms: PCP List Discharge Date/Time: 02/24/23 00:06
[2023-02-23] MEDS: SODIUM CHLORIDE 0.9% 1,000 ML IV STA (20:49)
[2023-02-23 21:00] LABS: BASOPHILS % (AUTO) 0.3 %; EOSINOPHILS # (AUTO) 0.2 10^3/uL (0.0-0.7); EOSINOPHILS % (AUTO) 2.1 %; HCT - HEMATOCRIT 39.9 % (37.0-47.0); HGB - HEMOGLOBIN 13.1 g/dL (12.0-16.0); LYMPHOCYTES # (AUTO) 2.2 10^3/uL (1.5-3.5); LYMPHOCYTES % (AUTO) 25.1 %; MEAN CORPUSCULAR HEMOGLOBIN 30.3 pg (27.0-31.0); MEAN CORPUSCULAR HGB CONC 32.8 g/dL (32.0-36.0); MEAN CORPUSCULAR VOLUME 92.4 fL (81.0-99.0); MONOCYTES # (AUTO) 0.7 10^3/uL (0.0-1.0); MONOCYTES % (AUTO) 7.9 %; NEUTROPHILS # (AUTO) 5.6 10^3/uL (1.5-6.6); NEUTROPHILS % (AUTO) 64.3 %; PLT - PLATELET COUNT 281 10^3/uL (130-450); RED BLOOD COUNT 4.32 10^6/uL (4.20-5.40); RED CELL DISTRIBUTION WIDTH 12.8 % (12.0-15.0); WHITE BLOOD COUNT 8.7 x10^3/uL (4.8-10.8)
[2023-02-23 21:19] LABS: DIGOXIN 0.5 ng/mL
[2023-02-23 21:33] LABS: ALBUMIN 3.9 g/dL (3.2-5.5); ALBUMIN/GLOBULIN RATIO 1.4 (1.0-2.2); BILIRUBIN,TOTAL 0.5 mg/dL (0.2-1.0); CREATININE 1.6 mg/dL (0.6-1.3); POTASSIUM 3.6 mmol/L (3.5-4.5); TOTAL PROTEIN 6.7 g/dL (6.4-8.9)
--- NOTE | 2023-02-23 22:08 | XRAY Report ---
PROCEDURE: Chest 1 View X-Ray INDICATIONS: chest pain TECHNIQUE: One view of the chest was acquired. COMPARISON: Chest x-ray 06/25/2022. FINDINGS: Surgical changes and devices: Left chest wall pacemaker redemonstrated. Lungs and pleura: No pleural effusions or pneumothorax. Lungs are clear. Mediastinum: Mediastinal contours appear normal. Heart size is normal. Bones and chest wall: No suspicious bony lesions. Overlying soft tissues appear unremarkable. IMPRESSION: No acute cardiopulmonary disease. Reviewed by: Yosef Wallis MD on 02/23/2023 10:07 PM PDT Approved by: Yosef Wallis MD on 02/23/2023 10:07 PM PDT Station ID: [id number]
[2023-02-23 23:29] VITALS: BP 123/85
== END 2023-02-24 00:06 | disposition home or self-care (01) ==
LOC: EDUNIT# → ED 20:33
DX: R07.89 Other chest pain (principal); I11.0 Hypertensive heart disease with heart failure; I50.9 Heart failure, unspecified; I48.91 Unspecified atrial fibrillation; I25.10 Atherosclerotic heart disease of native coronary artery without angina pectoris; E78.00 Pure hypercholesterolemia, unspecified; E11.9 Type 2 diabetes mellitus without complications; Z79.899 Other long term (current) drug therapy; Z79.4 Long term (current) use of insulin
CPT/HCPCS: 36415; 80053; 80162; 83690; 84484; 85025; 93005; 99283; 99284

== ENCOUNTER 2023-04-15 08:54 | Outpatient (CLI) | payer MEDICARE, OTHER ==
[2023-04-15 12:42] LABS: ALBUMIN 4.3 g/dL (3.2-5.5); ALBUMIN/GLOBULIN RATIO 1.5 (1.0-2.2); ALKALINE PHOSPHATASE 66 IU/L (42-121); ALT ALANINE AMINOTRANSFERASE 9 IU/L (10-60); AST ASPARTATE AMINOTRANSFERASE 14 IU/L (10-42); BILIRUBIN,TOTAL 0.6 mg/dL (0.2-1.0); BUN - BLOOD UREA NITROGEN 24 mg/dL (6-20); CALCIUM 9.8 mg/dL (8.5-10.3); CARBON DIOXIDE - CO2 29 mmol/L (21-32); CHLORIDE 106 mmol/L (101-111); CHOL/HDL RATIO 3.3 (<4.4); CHOLESTEROL 135 mg/dL; CREATININE 1.7 mg/dL (0.6-1.3); GFR - MDRD 29 (>89); GLUCOSE 122 mg/dL (74-104); HDL CHOLESTEROL 41 mg/dL; LDL CHOLESTEROL,CALCULATED 64 mg/dL; LDL/HDL RATIO 1.6 (<4.4); POTASSIUM 3.7 mmol/L (3.5-4.5); SODIUM 141 mmol/L (135-145); TOTAL PROTEIN 7.1 g/dL (6.4-8.9); TRIGLYCERIDES 149 mg/dL (48-352); VLDL CHOLESTEROL 30 mg/dL
[2023-04-15 13:24] LABS: ESTIMATED AVERAGE GLUCOSE 166 mg/dL (70-100); HEMOGLOBIN A1c% 7.4 % (4.27-6.07)
== END 2023-04-15 08:55 | disposition home or self-care (01) ==
LOC: LAB.N 08:54
PROVIDERS: ATTEND Physician Assistant Medical
DX: E11.9 Type 2 diabetes mellitus without complications (principal)
CPT/HCPCS: 36415; 80053; 80061; 83036; 83721

== ENCOUNTER 2023-06-02 14:32 | Outpatient (CLI) | payer MEDICARE, OTHER | END 2023-06-02 14:33 | disposition critical access hospital (66) | LOC: EMS 14:32 | DX: R07.89 Other chest pain (principal) | CPT/HCPCS: A0425; A0427 ==

== ENCOUNTER 2023-08-17 08:50 | Outpatient (CLI) | payer MEDICARE, OTHER ==
[2023-08-17 13:22] LABS: CALCIUM 9.9 mg/dL (8.5-10.3); CREATININE 1.8 mg/dL (0.6-1.3); POTASSIUM 3.9 mmol/L (3.5-4.5)
[2023-08-17 13:42] LABS: ESTIMATED AVERAGE GLUCOSE 157 mg/dL (70-100); HEMOGLOBIN A1c% 7.1 % (4.27-6.07)
== END 2023-08-17 08:51 | disposition home or self-care (01) ==
LOC: LAB.N 08:50
PROVIDERS: ATTEND Physician Assistant Medical
DX: E11.9 Type 2 diabetes mellitus without complications (principal)
CPT/HCPCS: 36415; 80048; 83036

== ENCOUNTER 2023-09-20 01:12 | Outpatient (CLI) | payer MEDICARE, OTHER | END 2023-09-20 01:13 | disposition critical access hospital (66) | LOC: EMS 01:12 | DX: M25.552 Pain in left hip (principal); R29.6 Repeated falls; R42 Dizziness and giddiness | CPT/HCPCS: A0425; A0429 ==

== ENCOUNTER 2023-09-20 01:27 | Emergency (ER) | payer MEDICARE, OTHER ==
--- NOTE | 2023-09-20 02:25 | ED Physician Documentation ---
PD HPI LOWER EXT INJURY - Stated complaint Stated Complaint: FELL, LEFT HIP PAIN - Chief complaint Chief Complaint: Ext Problem - History obtained from History obtained from: Patient (limited (due to severe [place]) and questionable reliability (due to dementia)), Other (POA (in ED at bedside)) - Additional information Additional information: BIBA. As noted above, the HPI is from EMS and the POA. The patient has limited contribution to HPI due to very [place] as well as questionable reliability due to dementia. Per EMS, the patient's chief complaint is left hip pain due to recent falls. The POA says that she was told that by staff at [facility] the patient fell at approximately 8 PM while walking out of her bathroom. The power of family law attorney says the patient is supposed to be using a walker but was not using the walker today and that this has not been unusual for her (not using her walker) of late. POA says the plan was to get her back in bed and give her some Tylenol, but then staff informed her that patient had several other falls tonight and was complaining of left hip pain and thus she comes to ED via EMS. The patient tells me she did not fall per se but had to slowly help her self to the ground; it is unclear in her description whether this is due to pain or weakness. Patient initially tells me she has no pain anywhere, but when I ask if she is having left hip pain, she then indicates this is chronic. POA, however, says she has not been aware of patient having chronic hip pain. Review of Systems Unable to obtain: Dementia PD PAST MEDICAL HISTORY - Past Medical History Cardiovascular: Hypertension, High cholesterol, Atrial fibrillation Respiratory: None Neuro: Dementia Endocrine/Autoimmune: Type 2 diabetes GI: None PRICER BAGGER: None : Renal insuffiency HEENT: Chronic hearing loss Psych: Anxiety, Other Musculoskeletal: Osteoarthritis, Fatigue, Chronic back pain Derm: None - Past Surgical History Past Surgical History: Yes General: Appendectomy Ortho: Other /PRICER BAGGER: Hysterectomy Cardiovascular: Pacemaker HEENT: Tonsil/Adenoidectomy - Present Medications Home Medications: Ambulatory Orders Medication Instructions Recorded Confirmed Atorvastatin Calcium [Lipitor] 40 mg PO DAILY 12/28/13 09/20/23 Digoxin 125 mcg PO DAILY 12/28/13 09/20/23 Diltiazem HCl [Cardizem Cd] 30 mg PO BID 12/28/13 09/20/23 Fluticasone [Flonase] 1 spray OZZIE BID 12/28/13 09/20/23 Furosemide [Lasix] 20 mg PO BID 12/28/13 09/20/23 Insulin NPH Human Isophane 18 unit SUBQ DAILY PM 09/12/21 09/20/23 [Humulin N Kwikpen] Insulin NPH Human Isophane 30 unit SUBQ DAILY 09/12/21 09/20/23 [Humulin N Kwikpen] Gabapentin [Neurontin] 100 mg PO BID 06/02/23 09/20/23 Glimepiride [Amaryl] 2 mg PO 0800 06/02/23 09/20/23 gemfibroziL [Lopid] 600 mg PO DAILY 06/02/23 09/20/23 Acetaminophen [Acetaminophen Extra 500 mg PO QID PRN #50 tablet 09/20/23 Strength] Cholecalciferol [Vitamin D3] 5,000 unit PO DAILY 09/20/23 09/20/23 DULoxetine [Cymbalta] 20 mg PO DAILY 09/20/23 09/20/23 Docusate Sodium 100Mg Capsule 100 mg PO DAILY #20 cap 09/20/23 [Colace 100Mg Capsule] HYDROcod/ACETAM 5/325 [[place] 5/325] 1 ea PO BID PRN #18 tablet 09/20/23 Multivit-Min/Iron/Folic/Lutein 1 tab PO DAILY 09/20/23 09/20/23 [Multivitamin Women 50 Plus Tab] Rivaroxaban [Xarelto] 15 mg PO DAILY 09/20/23 09/20/23 - Allergies Allergies/Adverse Reactions: Allergies Allergy/AdvReac Type Severity Reaction Status Date / Time atenolol Allergy Unknown Verified 09/20/23 01:49 flecainide Allergy Unknown Verified 09/20/23 01:49 hay fever Allergy Unknown Uncoded 09/20/23 01:49 wasp Allergy Unknown Uncoded 09/20/23 01:49 - Social History Does the pt smoke?: No Smoking Status: Never smoker Does the pt drink ETOH?: Yes Does the pt have substance abuse?: No - Immunizations Immunizations are current?: Yes - POLST Patient has POLST: No PD ED PE NORMAL - Vitals Vital signs reviewed: Yes - General General: No acute distress (NAD at rest but winces with passive movement of left hip as well as with palpation (compression) of left hip lateral aspect), Well developed/nourished - HEENT HEENT: Atraumatic, PERRL - Neck Neck: No bony TTP - Respiratory Respiratory: No respiratory distress, Clear bilaterally - Abdomen Abdomen: Soft, Non tender - Extremities Extremities: No edema - Neuro Eye Opening: Spontaneous Motor: Obeys Commands Verbal: Confused GCS Score: 14 PD ED PE EXPANDED - Cardiac Cardiac: Abnormal Rhythm, Irregularly irregular Results - Vitals Vitals: Vital Signs - 24 hr 09/20/23 09/20/23 09/20/23 06:00 07:35 09:00 Heart Rate 109 H 101 H 98 Respiratory 13 12 13 Rate Blood Pressure 118/73 100/65 119/78 O2 Saturation 94 98 96 09/20/23 09/20/23 10:25 13:17 Heart Rate 111 H 98 Respiratory 19 17 Rate Blood Pressure 144/82 H 113/63 O2 Saturation 98 100 Oxygen O2 Source Room air - Labs Labs: Laboratory Tests 09/20/23 09/20/23 09/20/23 05:54 07:03 07:03 WBC 12.7 H RBC 4.44 Hgb 13.2 Hct 41.3 MCV 93.0 MCH 29.7 MCHC 32.0 RDW 13.3 Plt Count 301 MPV 10.4 Neut # (Auto) 9.5 H Lymph # (Auto) 2.1 Day # (Auto) 0.8 Eos # (Auto) 0.1 Baso # (Auto) 0.0 Absolute Nucleated RBC 0.00 Nucleated RBC % 0.0 Sodium 138 Potassium 3.6 Chloride 106 Carbon Dioxide 26 Anion Gap 6.0 BUN 21 H Creatinine 1.2 Estimated GFR (MDRD) 43 L Glucose 58 L* POC Whole Bld Glucose Calcium 9.3 Total Bilirubin 0.5 AST 16 ALT 9 L Alkaline Phosphatase 66 Total Protein 7.0 Albumin 4.0 Globulin 3.0 Albumin/Globulin Ratio 1.3 Lipase 46 Urine Color YELLOW Urine Clarity CLEAR Urine pH 7.5 Ur Specific [place] 1.010 Urine Protein NEGATIVE Urine Glucose (UA) NEGATIVE Urine Ketones NEGATIVE Urine Occult Blood NEGATIVE Urine Nitrite NEGATIVE Urine Bilirubin NEGATIVE Urine Urobilinogen 0.2 (NORMAL) Ur Leukocyte Esterase NEGATIVE Ur Microscopic Review NOT INDICATED Urine Culture Comments NOT INDICATED 09/20/23 09/20/23 08:03 08:59 WBC RBC Hgb Hct MCV MCH MCHC RDW Plt Count MPV Neut # (Auto) Lymph # (Auto) Day # (Auto) Eos # (Auto) Baso # (Auto) Absolute Nucleated RBC Nucleated RBC % Sodium Potassium Chloride Carbon Dioxide Anion Gap BUN Creatinine Estimated GFR (MDRD) Glucose POC Whole Bld Glucose 85 107 H Calcium Total Bilirubin AST ALT Alkaline Phosphatase Total Protein Albumin Globulin Albumin/Globulin Ratio Lipase Urine Color Urine Clarity Urine pH Ur Specific [place] Urine Protein Urine Glucose (UA) Urine Ketones Urine Occult Blood Urine Nitrite Urine Bilirubin Urine Urobilinogen Ur Leukocyte Esterase Ur Microscopic Review Urine Culture Comments - Rads (name of study) CTH Relevant Findings:: Prelim report reviewed, See rad report left hip xrays with pelvis Relevant Findings:: Prelim report reviewed, See rad report PD Medical Decision Making - ED course Complexity details: reviewed results, re-evaluated patient, considered differential, d/w patient, d/w family ED course: CT head performed as patient is on Xarelto and reportedly had 2 falls during the course of the afternoon and evening today. There are no concerning findings on this study. Plain film x-rays of the left hip with PA pelvis have no evidence of acute injury including fracture. Urinalysis is normal. I asked ED RN to try to have patient stand at bedside and, if she is able to do so, to see if she can take a few steps with the walker which is at the bedside. I was subsequently told by ED RN that the patient was not able to bear any weight on her left lower extremity, seeming to be in pain with attempts to do so. Thus, I have ordered CT of the lumbar spine as well as CT of the left hip. The results of the studies are pending at the end of my shift and thus care is turned over to the oncoming ED physician (Dr. Cala). Additionally, I have ordered some basic lab studies (CBC, ER abdominal panel). Departure - Departure Disposition: 01 Home, Self Care Clinical Impression: Fall from slip, trip, or stumble, Anticoagulant long-term use, Pubic ramus fracture Condition: Stable Instructions: ED Fx Pelvis Follow-Up: Jami Aaron PA-C [Primary Care Provider] - Prescriptions: Acetaminophen [Acetaminophen Extra Strength] 500 mg PO QID PRN #50 tablet PRN Reason: Pain Docusate Sodium 100Mg Capsule [Colace 100Mg Capsule] 100 mg PO DAILY #20 cap HYDROcod/ACETAM 5/325 [[place] 5/325] 1 ea PO BID PRN #18 tablet PRN Reason: Pain Comments: Your CT scans showed normal CT scan of the lumbar spine (arthritic changes as expected were noted). The pelvic CT showed ramus fracture on the left. This part is supportive part of the bone for muscle attachment and structure of the pelvis. It is not integral to weightbearing per se such as the hip. The hip bone and socket appears normal on the CT. The ramus fracture will hurt with weightbearing and with movement of the upper leg. There is no intervention surgically for it. It is a matter of waiting for it to heal. You have been able to walk with your walker here in the department after having some pain medications. I hope this will be sufficient for you to continue with your normal activity as needed back at [facility] as this is starting to heal. The worst pain will be the first week to week and a half until the initial bone healing ensues. It will take about 6 weeks for full healing of it back to normal level. I would suggest increasing your acetaminophen from once daily to 4 times daily for the next 10 days or so. To that add hydrocodone/acetaminophen if needed for worse pain. Since you are on a blood thinner, I would avoid NSAIDs. The pain medicines and also just less activity can lead to constipation. Take a daily stool softener as well. Recheck if not improving well over the next several days or so. It may be reasonable to follow-up with the orthopedic office in about 1-1/2 to 2 weeks to ensure its healing appropriately. Call for an appointment. I sent your prescriptions to your preferred pharmacy. I am prescribing a short course of narcotic pain medication for you. These are potentially dangerous and addictive medications that should be used carefully. These medications may constipate you. Take an [id number]-[id number] stool softener such as docusate twice daily with plenty of water while taking these medications. If you go 24 hours without a bowel movement, take [id number] MiraLAX, per package instructions. Do not drink or drive while taking these medications. If you received narcotic or sedating medications while in the emergency department do not drive for 24 hours. Store this medication in a safe, secure place and out of reach of children. It is a violation of federal law to give or sell this medication to another person or to use in a manner other than prescribed. The ED will not refill narcotic prescriptions, including prescriptions lost or stolen. You can dispose of unwanted medications at the [facility]'s office or at several pharmacies such as [facility]. Forms: PCP List Discharge Date/Time: 09/20/23 13:41
[2023-09-20 06:09] LABS: BILIRUBIN,URINE NEGATIVE (NEGATIVE); GLUCOSE, URINE (UA) NEGATIVE (NEGATIVE); KETONES,URINE (UA) NEGATIVE (NEGATIVE); LEUKOCYTE ESTERASE, URINE NEGATIVE (NEGATIVE); NITRITE,URINE NEGATIVE (NEGATIVE); OCCULT BLOOD,URINE NEGATIVE (NEGATIVE); PH,URINE 7.5 PH (5.0-7.5); PROTEIN,URINE NEGATIVE (NEGATIVE); UROBILINOGEN,URINE 0.2 (NORMAL) E.U./dL (NORMAL)
[2023-09-20 06:20] LABS: CLARITY,URINE CLEAR (CLEAR)
[2023-09-20 07:29] LABS: BASOPHILS % (AUTO) 0.2 %; EOSINOPHILS # (AUTO) 0.1 10^3/uL (0.0-0.7); EOSINOPHILS % (AUTO) 0.6 %; HCT - HEMATOCRIT 41.3 % (37.0-47.0); HGB - HEMOGLOBIN 13.2 g/dL (12.0-16.0); LYMPHOCYTES # (AUTO) 2.1 10^3/uL (1.5-3.5); LYMPHOCYTES % (AUTO) 16.8 %; MEAN CORPUSCULAR HEMOGLOBIN 29.7 pg (27.0-31.0); MEAN PLATELET VOLUME 10.4 fL (7.9-10.8); MONOCYTES # (AUTO) 0.8 10^3/uL (0.0-1.0); MONOCYTES % (AUTO) 6.3 %; NEUTROPHILS # (AUTO) 9.5 10^3/uL (1.5-6.6); NEUTROPHILS % (AUTO) 74.8 %; PLT - PLATELET COUNT 301 10^3/uL (130-450); RED BLOOD COUNT 4.44 10^6/uL (4.20-5.40); RED CELL DISTRIBUTION WIDTH 13.3 % (12.0-15.0); WHITE BLOOD COUNT 12.7 x10^3/uL (4.8-10.8)
[2023-09-20 07:32] LABS: ALBUMIN/GLOBULIN RATIO 1.3 (1.0-2.2); BILIRUBIN,TOTAL 0.5 mg/dL (0.2-1.0); CALCIUM 9.3 mg/dL (8.5-10.3); CREATININE 1.2 mg/dL (0.6-1.3); POTASSIUM 3.6 mmol/L (3.5-4.5)
--- NOTE | 2023-09-20 09:01 | CT Report ---
PROCEDURE: Lower Extremity LT WO INDICATIONS: fall, left hip pain, unable to weight-bear TECHNIQUE: Noncontrast 3-mm axial sections acquired from the distal tibial shaft to the talar dome, with coronal and sagittal reformats. For radiation dose reduction, the following was used: automated exposure c ontrol, adjustment of mA and/or kV according to patient size. COMPARISON: None. FINDINGS: Image quality: Excellent. Bones: There is an acute, possibly minimally comminuted, nondisplaced left inferior pubic ramus frac ture. Pubic symphysis remains normally aligned. Left femoral acetabular joint remains intact. No acut e proximal femur fracture. Moderate degenerative arthritic change in both femoral acetabular joints, left greater than right. Mi ld degenerative change of both sacroiliac joints. Soft tissues: No intrapelvic free fluid. The uterus is absent. The urinary bladder is intact. There is no intramuscular hematoma seen. Visible bowel loops are normal. Extrapelvic musculature appears sy mmetric. There is no joint effusion. Impression: Nondisplaced left inferior pubic ramus fracture. Reviewed by: Kristi Hester MD on 09/20/2023 9:00 AM PST Approved by: Kristi Hester MD on 09/20/2023 9:00 AM PST Station ID: [id number]
--- NOTE | 2023-09-20 09:06 | CT Report ---
PROCEDURE: Lumbar Spine WO INDICATIONS: fall, unable to weight-bear, low back pain TECHNIQUE: Noncontrast 3 mm thick sections acquired from the T12 level to the sacrum. Sagittal and coronal refo rmats were constructed. For radiation dose reduction, the following was used: automated exposure co ntrol, adjustment of mA and/or kV according to patient size. COMPARISON: None. FINDINGS: Image quality: Excellent. Bones: Trace retrolisthesis L1 on 2 and trace anterolisthesis L4 on 5. Otherwise normal bone alignmen t. Severe disc degeneration at T12-L1 and L1-2. There is vacuum phenomenon and mild disc calcificatio n at these levels. No acute vertebral body compression fractures. No suspicious lytic or blastic bony lesions. Central spinal caliber is of normal overall caliber. No pars defects. Moderate right foraminal narrowing at L1-2 due to facet arthropathy and degenerative endplate change. Mild right foraminal narrowing at L2-3 L3-4 due to facet arthropathy and mild disc bulge. Mild left foraminal narrowing at L4-5 due to mild disc bulge. Mild central canal narrowing at L3-4 and [id number]-km-[id number] central canal narrowing at L4-5 due to diff use circumferential disc bulge and mild facet arthropathy. Soft tissues: No retroperitoneal masses or hematomas. Visualized aorta is normal in caliber. IMPRESSION: No vertebral body fractures. Mild to moderate central canal and bilateral foraminal narrowing as described due to chronic appearin g degeneration. Reviewed by: Kristi Hester MD on 09/20/2023 9:05 AM PST Approved by: Kristi Hester MD on 09/20/2023 9:05 AM PST Station ID: [id number]
[2023-09-20] MEDS: NAPROXEN 250 MG TABLET PO STA (10:20)
[2023-09-20] MEDS: ACETAMINOPHEN 325 MG TABLET PO STA (10:20)
[2023-09-20] MEDS: HYDROcod/ACETAM 5/325 MG TABLET PO STA (10:23)
--- NOTE | 2023-09-20 11:00 | CT Report ---
PROCEDURE: Head WO INDICATIONS: fall TECHNIQUE: Noncontrast 4.5 mm thick angled axial sections acquired from the foramen magnum to the vertex. For r adiation dose reduction, the following was used: automated exposure control, adjustment of mA and/or kV according to patient size. COMPARISON: CT head 07/04/2014. FINDINGS: Image quality: Excellent. CSF spaces: Basal cisterns are patent. No extra-axial fluid collections. Ventricles are normal in size and shape. Brain: No midline shift. No intracranial masses or hemorrhage. Moise-white matter interface is norm al. Mild periventricular, deep and subcortical white matter hypodensities are nonspecific, likely re flecting chronic microvascular ischemic changes. Skull and face: Calvarium and visualized facial bones are intact, without suspicious lesions. Sinuses: Visualized sinuses and mastoids are clear. IMPRESSION: No acute intracranial pathology. Findings are concordant with preliminary interpretation provided by [facility]. Reviewed by: Inga Burns MD on 09/20/2023 10:59 AM PST Approved by: Inga Burns MD on 09/20/2023 10:59 AM PST Station ID: [id number]
--- NOTE | 2023-09-20 11:02 | XRAY Report ---
PROCEDURE: Hip w/Pelvis 2-3V LT INDICATIONS: fall, left hip pain TECHNIQUE: 2 views of the hip were acquired. COMPARISON: None. FINDINGS: Bones: No fractures or dislocations. No suspicious bony lesions. Soft tissues: No suspicious soft tissue calcifications or masses. IMPRESSION: No acute bony abnormality. If there remains a high clinical concern for fracture, including inability to bear weight consider cross-sectional imaging now. If pain persists with conservative management, consider repeat x-ray in 7-10 days or cross-sectional imaging. Findings are concordant with preliminary interpretation provided by [facility]. Reviewed by: Inga Burns MD on 09/20/2023 11:00 AM PST Approved by: Inga Burns MD on 09/20/2023 11:00 AM PST Station ID: [id number]
--- NOTE | 2023-09-20 12:38 | ED Physician Documentation ---
ED Addendum - Addendum Addendum: 09/20/23 12:33 The patient was conversant here. She is hard of hearing so need to speak loudly but otherwise is able to comprehend well. 6 she was complaining of pain with weightbearing when she stood bedside. No pain with just movement of the leg while in bed. The patient had the CT reports back from the spine and pelvis. Arthritic changes in the spine. There is a ramus fracture inferiorly on the left. No hip fracture. This would explain her symptoms and not hurting with rotational movement or impaction of the hip with weightbearing. The patient's daughter is concerned that the patient will not be able to be up and around. As of my assuming care of the patient, she had not had any medications. We attempted just a combination of Tylenol and naproxen. She was given half hour to an hour after these medicines to see how she did. She was still having some pain with weightbearing. She was then given a dose of hydrocodone orally. Another hour later, the patient was able to stand bedside and also walk with her walker tolerably. It was still hurting but she is able to do it. At this point the patient seems like she would be able to do okay adequately at her assisted living. We certainly would not want to extend opiate use for very long and to have it in frequently but it may be she needs that in the short- term. I discussed this with her and also her daughter who was here in the department with her. We would not want to continue anti-inflammatories per se since she is on a blood thinner. However we can go with Tylenol 4 times daily. Currently takes it just once daily. To that we can add hydrocodone if needed and a stool softener. I sent these prescriptions to her preferred pharmacy. She does live at [facility] and they have I believe social work there that can assist her with more higher level if needed. At this point it does not appear that she needs a alf to a higher level. I did talk with her and her daughter that the degree of symptoms should this decrease over the first week to week and a half in particular but take about 4 to 6 weeks to resolve.
[2023-09-20 13:21] VITALS: BP 113/63; O2SAT 100
== END 2023-09-20 13:41 | disposition home or self-care (01) ==
LOC: EDUNIT# → ED 01:27
DX: S32.592A Other specified fracture of left pubis, initial encounter for closed fracture (principal); W18.39XA Other fall on same level, initial encounter; Y92.121 Bathroom in nursing home as the place of occurrence of the external cause; F03.90 Unspecified dementia, unspecified severity, without behavioral disturbance, psychotic disturbance, mood disturbance, and anxiety; I10 Essential (primary) hypertension; E78.00 Pure hypercholesterolemia, unspecified; E11.9 Type 2 diabetes mellitus without complications; I48.91 Unspecified atrial fibrillation; N28.9 Disorder of kidney and ureter, unspecified; M19.90 Unspecified osteoarthritis, unspecified site; Z95.0 Presence of cardiac pacemaker; Z79.4 Long term (current) use of insulin; Z79.01 Long term (current) use of anticoagulants; Z79.899 Other long term (current) drug therapy
CPT/HCPCS: 36415; 70450; 72131; 73502; 73700; 80053; 81003; 83690; 85025; 99284; A9270; 81001; 87086

== ENCOUNTER 2023-09-20 14:26 | Outpatient (CLI) | payer MEDICARE, OTHER | END 2023-09-20 14:27 | disposition home or self-care (01) | LOC: EMS 14:26 | PROVIDERS: ATTEND Emergency Medicine | DX: S32.592A Other specified fracture of left pubis, initial encounter for closed fracture (principal); W18.30XA Fall on same level, unspecified, initial encounter; Z74.01 Bed confinement status; F03.90 Unspecified dementia, unspecified severity, without behavioral disturbance, psychotic disturbance, mood disturbance, and anxiety | CPT/HCPCS: A0425; A0428 ==

== ENCOUNTER 2023-10-07 08:00 | Outpatient (CLI) | payer MEDICARE, OTHER | END 2023-10-07 23:59 | disposition home or self-care (01) | LOC: PC 08:00 | PROVIDERS: ATTEND Nurse Practitioner Gerontology | DX: Z51.5 Encounter for palliative care (principal); S32.592D Other specified fracture of left pubis, subsequent encounter for fracture with routine healing; M25.552 Pain in left hip; F03.C0 Unspecified dementia, severe, without behavioral disturbance, psychotic disturbance, mood disturbance, and anxiety; L71.9 Rosacea, unspecified; I13.0 Hypertensive heart and chronic kidney disease with heart failure and stage 1 through stage 4 chronic kidney disease, or unspecified chronic kidney disease; E11.22 Type 2 diabetes mellitus with diabetic chronic kidney disease; N18.4 Chronic kidney disease, stage 4 (severe); I50.9 Heart failure, unspecified; I48.91 Unspecified atrial fibrillation; H91.90 Unspecified hearing loss, unspecified ear; Z79.899 Other long term (current) drug therapy; Z79.01 Long term (current) use of anticoagulants; Z79.4 Long term (current) use of insulin; Z63.8 Other specified problems related to primary support group | CPT/HCPCS: 99350 ==

== ENCOUNTER → 2023-10-27 | Outpatient (CLI) | payer MEDICARE, OTHER | LOC: PC 08:00 | PROVIDERS: ATTEND Nurse Practitioner Gerontology | DX: Z51.5 Encounter for palliative care (principal); S32.502D Unspecified fracture of left pubis, subsequent encounter for fracture with routine healing; M54.50 Low back pain, unspecified; G89.29 Other chronic pain; G30.9 Alzheimer's disease, unspecified; F02.C4 Dementia in other diseases classified elsewhere, severe, with anxiety; I13.0 Hypertensive heart and chronic kidney disease with heart failure and stage 1 through stage 4 chronic kidney disease, or unspecified chronic kidney disease; E11.22 Type 2 diabetes mellitus with diabetic chronic kidney disease; N18.4 Chronic kidney disease, stage 4 (severe); I50.9 Heart failure, unspecified; H91.91 Unspecified hearing loss, right ear; R26.81 Unsteadiness on feet; Z79.899 Other long term (current) drug therapy; Z79.4 Long term (current) use of insulin; Z79.01 Long term (current) use of anticoagulants; Z74.1 Need for assistance with personal care; Z91.81 History of falling | CPT/HCPCS: 99215 ==

== ENCOUNTER → 2023-11-01 | Outpatient (CLI) | payer MEDICARE, OTHER | LOC: PC 08:00 | PROVIDERS: ATTEND Nurse Practitioner Gerontology | DX: Z51.5 Encounter for palliative care (principal); G30.9 Alzheimer's disease, unspecified; G89.29 Other chronic pain; M54.59 Other low back pain; F03.90 Unspecified dementia, unspecified severity, without behavioral disturbance, psychotic disturbance, mood disturbance, and anxiety | CPT/HCPCS: 99426; 99427 ==

== ENCOUNTER 2023-11-30 08:00 | Outpatient (CLI) | payer MEDICARE, OTHER | END 2023-11-30 23:59 | disposition home or self-care (01) | LOC: PC 08:00 | PROVIDERS: ATTEND Nurse Practitioner Gerontology | DX: Z51.5 Encounter for palliative care (principal); F01.B0 Vascular dementia, moderate, without behavioral disturbance, psychotic disturbance, mood disturbance, and anxiety; G89.29 Other chronic pain; E11.65 Type 2 diabetes mellitus with hyperglycemia; H91.90 Unspecified hearing loss, unspecified ear; L71.9 Rosacea, unspecified; E11.40 Type 2 diabetes mellitus with diabetic neuropathy, unspecified; J30.2 Other seasonal allergic rhinitis; Z79.4 Long term (current) use of insulin; Z79.899 Other long term (current) drug therapy; Z71.89 Other specified counseling; Z91.81 History of falling; Z66 Do not resuscitate | CPT/HCPCS: 99350 ==

== ENCOUNTER 2024-01-01 08:00 | Outpatient (CLI) | payer MEDICARE, OTHER | END 2024-01-01 23:25 | disposition home or self-care (01) | LOC: PC 08:00 | PROVIDERS: ATTEND Nurse Practitioner Gerontology | DX: Z51.5 Encounter for palliative care (principal); G30.9 Alzheimer's disease, unspecified; G89.29 Other chronic pain; M54.59 Other low back pain | CPT/HCPCS: 99426; 99427 ==

== ENCOUNTER 2024-01-25 19:43 | Outpatient (CLI) | payer MEDICARE, OTHER | END 2024-01-25 23:59 | disposition EMS.NT | LOC: EMS 19:43 | DX: E11.65 Type 2 diabetes mellitus with hyperglycemia (principal) ==

== ENCOUNTER 2024-02-19 08:00 | Outpatient (CLI) | payer MEDICARE, OTHER | END 2024-02-19 23:59 | disposition home or self-care (01) | LOC: PC 08:00 | PROVIDERS: ATTEND Nurse Practitioner Gerontology | DX: Z51.5 Encounter for palliative care (principal); E11.22 Type 2 diabetes mellitus with diabetic chronic kidney disease; I13.0 Hypertensive heart and chronic kidney disease with heart failure and stage 1 through stage 4 chronic kidney disease, or unspecified chronic kidney disease; N18.4 Chronic kidney disease, stage 4 (severe); I50.9 Heart failure, unspecified; E11.42 Type 2 diabetes mellitus with diabetic polyneuropathy; M25.531 Pain in right wrist; G30.9 Alzheimer's disease, unspecified; F02.80 Dementia in other diseases classified elsewhere, unspecified severity, without behavioral disturbance, psychotic disturbance, mood disturbance, and anxiety; F01.50 Vascular dementia, unspecified severity, without behavioral disturbance, psychotic disturbance, mood disturbance, and anxiety; R29.6 Repeated falls; Z91.81 History of falling | CPT/HCPCS: 99350 ==

== ENCOUNTER 2024-03-02 09:39 | Outpatient (CLI) | payer MEDICARE, OTHER ==
[2024-03-02 12:21] LABS: HCT - HEMATOCRIT 48.3 % (37.0-47.0); HGB - HEMOGLOBIN 15.5 g/dL (12.0-16.0); MEAN CORPUSCULAR HGB CONC 32.1 g/dL (32.0-36.0); MEAN CORPUSCULAR VOLUME 93.6 fL (81.0-99.0); MEAN PLATELET VOLUME 11.1 fL (7.9-10.8); RED BLOOD COUNT 5.16 10^6/uL (4.20-5.40); RED CELL DISTRIBUTION WIDTH 12.1 % (12.0-15.0); WHITE BLOOD COUNT 9.3 x10^3/uL (4.8-10.8)
[2024-03-02 13:00] LABS: ALBUMIN 4.1 g/dL (3.2-5.5); ALBUMIN/GLOBULIN RATIO 1.6 (1.0-2.2); ALKALINE PHOSPHATASE 62 IU/L (42-121); ALT ALANINE AMINOTRANSFERASE 10 IU/L (10-60); AST ASPARTATE AMINOTRANSFERASE 15 IU/L (10-42); BILIRUBIN,TOTAL 0.8 mg/dL (0.2-1.0); BUN - BLOOD UREA NITROGEN 22 mg/dL (6-20); CARBON DIOXIDE - CO2 28 mmol/L (21-32); CHLORIDE 104 mmol/L (101-111); CHOL/HDL RATIO 5.1 (<4.4); CHOLESTEROL 152 mg/dL; CREATININE 1.6 mg/dL (0.6-1.3); GFR - MDRD 31 (>89); GLUCOSE 149 mg/dL (74-104); HDL CHOLESTEROL 30 mg/dL; LDL CHOLESTEROL,CALCULATED 81 mg/dL; LDL/HDL RATIO 2.7 (<4.4); POTASSIUM 3.7 mmol/L (3.5-4.5); SODIUM 139 mmol/L (135-145); TOTAL PROTEIN 6.7 g/dL (6.4-8.9); TRIGLYCERIDES 206 mg/dL; VLDL CHOLESTEROL 41 mg/dL
[2024-03-02 13:04] LABS: THYROID STIMULATING HORMONE 2.64 uIU/mL (0.34-5.60)
[2024-03-02 13:07] LABS: CREATININE,URINE 149.4 mg/dL; MICROALBUM/CREATININE RATIO,UR 186.1 ug/mg (<30.0); MICROALBUMIN,URINE 27.8 mg/dL
[2024-03-02 13:10] LABS: ESTIMATED AVERAGE GLUCOSE 214 mg/dL (70-100); HEMOGLOBIN A1c% 9.1 % (4.27-6.07)
== END 2024-03-02 09:40 | disposition home or self-care (01) ==
LOC: LAB.N 09:39
PROVIDERS: ATTEND Physician Assistant Medical
DX: I12.9 Hypertensive chronic kidney disease with stage 1 through stage 4 chronic kidney disease, or unspecified chronic kidney disease (principal); N18.4 Chronic kidney disease, stage 4 (severe); E78.5 Hyperlipidemia, unspecified; M81.0 Age-related osteoporosis without current pathological fracture; E11.42 Type 2 diabetes mellitus with diabetic polyneuropathy; G30.9 Alzheimer's disease, unspecified; K21.9 Gastro-esophageal reflux disease without esophagitis
CPT/HCPCS: 36415; 80053; 80061; 82043; 82306; 82570; 82607; 83036; 83721; 83735; 84443; 85027

== ENCOUNTER 2024-03-15 10:50 | Outpatient (CLI) | payer MEDICARE, OTHER ==
--- NOTE | 2024-03-15 16:06 | XRAY Report ---
PROCEDURE: Wrist 3+V RT INDICATIONS: PAIN IN WRIST TECHNIQUE: 3 views of the wrist were acquired. COMPARISON: None. FINDINGS: Bones: No fractures or dislocations. Chondrocalcinosis of the TFCC. No suspicious bony lesions. Dif fuse osseous demineralization. Mild first CMC and diffuse carpal joint space narrowing. Soft tissues: No suspicious soft tissue calcifications or masses. IMPRESSION: 1.No acute bony abnormality. If clinical symptoms persist, consider repeat radiograph in 7-10 days ve rsus cross-sectional imaging. 2.Mild first CMC joint and diffuse carpal space narrowing. 3.Chondrocalcinosis of the TFCC. 4.Diffuse osseous demineralization. Reviewed by: Christina Jaime MD on 03/15/2024 4:05 PM PDT Approved by: Christina Jaime MD on 03/15/2024 4:05 PM PDT Station ID: [id number]
== END 2024-03-15 10:51 | disposition home or self-care (01) ==
LOC: DI.N 10:50
PROVIDERS: ATTEND Nurse Practitioner Gerontology
DX: M25.531 Pain in right wrist (principal); M25.831 Other specified joint disorders, right wrist; M11.231 Other chondrocalcinosis, right wrist; M81.0 Age-related osteoporosis without current pathological fracture